=== PATIENT | male | born 1940 | race Caucasian/White ===

== ENCOUNTER 2019-06-26 14:21 | Emergency (ER) | payer MEDICARE, OTHER ==
[~2019-06-26] VITALS: Ht 182.9 cm; Wt 86.7 kg
--- OUTSIDE RECORDS SUMMARY | 2019-06-26 14:24 | XMS REPORT | Summary of Care ---
Author Author [facility] Organization [facility] Address Unknown Phone Unavailable Care Team Providers Care [employer] Name Role Phone System, Pcp Not In PCP Reason for Visit * Reason Comments Back Pain * Consult, Test & Treat (Routine) Referred By Contact Referred To Contact Status Reason Specialty Diagnoses / [place] [address] [place] [id number] [place] [address] [place] [id number] Authorization Physical Diagnoses Not Needed Medicine and Radiculopathy, Rehab lumbar region Kevin L45 trans kristi P rocedures [place] INJECT ANES/STEROID FORAMEN LUMBAR/SACRAL W IMG GUIDE ,1 LEVEL PMR INJECTION FLUORO W/ RM Encounter Details Care Team Description Date Type Department Juvenal Shields Jr., MD [address] [address] Back Pain 02/11/2019 Office Visit [facility] Physical Medicine & Rehabilitation [address] [facility]. 10[address] Floor, [place] [address] Allergies No Known Allergiesdocumented as of this encounter (statuses as of 02/11/2019) Medications End Date Status Medication Sig Dispensed Refills Start Date Active aspirin (ECOTRIN) 325 MG Take by 0 TBEC mouth. Active ATORVASTATIN CALCIUM OR Take by 0 mouth. Active clopidogrel (PLAVIX) 75 Take 75 mg by 0 MG tablet mouth daily. Active IRON OR Take by 0 mouth. Active digoxin (LANOXIN) 125 MCG Take 125 mcg 0 tablet by mouth daily. Active METFORMIN HCL OR Take by 0 mouth. Active Metoprolol-Hydrochlorothi Take by 0 azide 25-12.5 MG TB24 mouth. Active Potassium (POTASSIMIN OR) Take by 0 mouth. Active Pantoprazole Sodium 40 MG Take by 0 PACK mouth. Active [place]-3 Fatty Acids (FISH Take by 0 OIL OR) mouth. Active warfarin (COUMADIN) 7.5 Take 7.5 mg 0 MG tablet by mouth daily. Status Hospital, Clinic, or Ordered Dose Route Frequency Start End Date Other Facility Date Administered Medication Ended triamcinolone acetonide EP ONCE 02/12/20 (KENALOG-40) 40 mg/mL 60 19 9 mg, bupivacaine (PF) (MARCAINE) 0.5 % 2 mLIndications: Bilateral lumbar radiculopathy Ended iohexol (OMNIPAQUE) 300 1 mL EP ONCE 02/12/20 MG/ML injection 1 19 9 mLIndications: Bilateral lumbar radiculopathy documented as of this encounter (statuses as of 02/11/2019) Active Problems No known active problemsdocumented as of this encounter (statuses as of 02/11/2019) Social History Date Tobacco Use Types Packs/Day Years Used Never Smoker Smokeless Tobacco: Never Used Drinks/Week oz/Week Comments Alcohol Use Never Alcohol Habits Answer Date Recorded How often do you have a drink containing alcohol? Never 09/08/2018 How many drinks containing alcohol do you have on Not asked a typical day when you are drinking? How often do you have six or more drinks on one Not asked occasion? Sex Assigned at Date Recorded Not on file Industry Job Start Date Occupation Not on file Not on file Not on file Travel End Travel History Travel Start No recent travel history available. documented as of this encounter Last Filed Vital Signs Reading Time Taken Comments Vital Sign 140/74 02/11/2019 3:22 PM CDT Blood Pressure 80 02/11/2019 3:22 PM CDT Pulse - - Temperature - - Respiratory Rate - - Oxygen Saturation - - Inhaled Oxygen Concentration 95.3 kg (210 lb) 02/11/2019 3:22 PM CDT Weight 182.9 cm (6') 02/11/2019 3:22 PM CDT Height 28.48 02/11/2019 3:22 PM CDT Body Mass Index documented in this encounter Patient Instructions * Patient Instructions* Juvenal Shields Jr., MD - 02/11/2019 4:00 PM CDT Juvenal Shields Jr., MD [facility] PM&R [address] [address] Today you had a spinal injection ACTIVITY: ? Avoid strenuous activity and lifting for 24 hours. Consult with your physicia n for any further instructions. ? If you have received sedation or pain medication, do not drive, drink alcohol, operate machinery, sign legal documents, or make any legal decisions for 24 hours. DAY OF TEST: ? You may resume your normal diet and take your regular medications unless direc james otherwise. ? If you are tender over the site of the injection you may use an ice pack wrapp ed in a towel for 20 minutes, 3-4 times per day. ? Do not apply heat to the area. ? No tub bath or soaking in water (pool, Jacuzzi, etc) for the rest of the day. ? Your usual pain may get slightly worse over the next 24-72 hours. Call for an y unusual pain or discomfort beyond that time frame. ? You may experience prolonged drowsiness or confusion. Therefore, do not drive immediately after the procedure. ? There may be swelling, redness, drainage, or pain at the injection site or IV site. WHEN SHOULD I CALL SOMEONE? ? If you experience severe back pain, progressive numbness or weakness of your l egs, loss of control of your bladder or bowels, or signs of infection in the are a of the injection or IV site, go to the nearest ER or call 911. ? With slight increase in pain,(which is possible) but no other neurological ezequiel nges, you may call our office. However, if you have any doubts or concerns please go to the nearest ER. FOLLOW UP: Call the office for a follow up appointment in approximately 2 weeks if you do not have an appointment already scheduled or unless otherwise stated by physician. YOU MUST BRING YOUR PAIN LOG TO YOUR FOLLOW UP APPOINTMENT. IF NOT, YOUR APPOINTMENT MAY BE CANCELLED. documented in this encounter Progress Notes * Juvenal Shields Jr., MD - 02/11/2019 4:00 PM CDT Date: 02/11/2019 Pre-procedure diagnosis: L45 Acute Lumbar Radiculopathy Bilateral) Post-procedure diagnosis: Same Procedure: 1)L45 Transforaminal Epidural Steroid injection(Right) 2) L45 Transforaminal Epidural Steroid injection(Left) Fluoroscopic Guidance for needle placement Complications: None CONSENT: Today's procedure, its potential benefits as well as its risks and pote ntial side effects were reviewed. Discussed risks of the procedure include bleed ing, infection, nerve irritation or damage, reactions to the medications, headac he, failure of the pain to improve, and exacerbation of the pain were explained to the patient, who verbalized understanding and who wished to proceed. Informed consent was signed. DESCRIPTION OF PROCEDURES: After written informed consent was obtained, the philip ent was taken to the fluoroscopy suite and placed in the prone position. Anatomi faiza landmarks were identified by way of fluoroscopy in multiple views. Strict as eptic technique was utilized. A 22-gauge 3-1/2-inch needle was then incrementally advanced using multiple fluo roscopic views from an oblique approach into the Right L45 lumbar intervertebra l space. Proper needle placement lateral to the 6 oclock position of the L4 p edicle in an AP view was confirmed with the aid of fluoroscopy. Both AP and lat eral views were used to confirm final needle placement. After negative aspirati on, Omniopaque 300 contrast was injected which delineated epidural without vascu lar flow and a normal epidurogram under fluoroscopy in the lateral and AP view. After negative aspiration was reconfirmed, a 1.0 mL of 0.5% marcaine and 30 mg of Kenalog was slowly injected into the epidural space. A 22-gauge 3-1/2-inch needle was then incrementally advanced using multiple fluo roscopic views from an oblique approach into the Left L45 lumbar intervertebral space. Proper needle placement lateral to the 6 oclock position of the L4 pe dicle in an AP view was confirmed with the aid of fluoroscopy. Both AP and late ral views were used to confirm final needle placement. After negative aspiratio n, Omniopaque 300 contrast was injected which delineated epidural without vascul ar flow and a normal epidurogram under fluoroscopy in the lateral and AP view. A fter negative aspiration was reconfirmed, 1.0 mL of 0.5% marcaine and 30 mg of Kenalog was slowly injected into the epidural space All needles were removed intact. Hemostasis was maintained. There were no compli cations. The area was cleaned and a Band-Aid placed as necessary. The patient to lerated the procedure well and all needles were removed intact. After a period o f observation, the patient was noted to be hemodynamically stable and neurovascu larly intact following the procedure as prior to the procedure, and was ultimate ly discharged to home with supervision in good condition. The patient was instru cted to schedule an appointment in the office within 2 weeks. 1 ml of Omnipaque 300 mg/ ml was used and 29 cc of the Omnipaque was wasted. Juvenal Shields Jr., MD documented in this encounter Plan of Treatment Health Maintenance Due Date Last Done Comments MEDICARE AWV 1941 TETANUS SHOT (ADULT) 01/13/1956 BMI FOLLOW UP PLAN 1959 PNEUMOVAX >=65 (PPSV23) 2006 PREVNAR >=65 (PCV13) 2006 FLU VACCINE > 6 MONTHS 11/20/2018 FALL SCREEN 09/09/2019 02/11/2019 documented as of this encounter Results Not on filedocumented in this encounter Visit Diagnoses Diagnosis Bilateral lumbar radiculopathy - Primary documented in this encounter Administered Medications Action Date Dose Rate Site Medication Order MAR Action 02/11/2019 3:58 PM CDT 1 mL iohexol (OMNIPAQUE) 300 MG/ML injection Given by 1 mL 1 mL, Epidural, ONCE, 1 dose, 02/11/19 at 1600 02/11/2019 3:58 PM CDT triamcinolone acetonide (KENALOG-40) 40 Given by mg/mL 60 mg, bupivacaine (PF) (MARCAINE) 0.5 % 2 mL Epidural, ONCE, 1 dose, 02/11/19 at 1600 documented in this encounter Insurance Type Payer Benefit Subscriber ID Effective Phone Address Plan / Dates Group Medicare MEDICARE MEDICARE xxxxxxxxxx 2014-[id number] [place] [address] PPO [facility] CHOICE/CHO xxxxxxxxx 2013- [address] [place] [address] [id number] PLUS/[facility] PPO - [facility] [id number] documented as of this encounter
--- OUTSIDE RECORDS SUMMARY | 2019-06-26 14:25 | XMS REPORT ---
Author Author [facility] Address Unknown Phone Unavailable Care Team Providers Care Senior Java Web Application Developer Name Role Phone Zen ALVAREZ Unavailable Unavailable Nanci LAWSON Unavailable Unavailable Problems This patient has no known problems. Allergies, Adverse Reactions, Alerts This patient has no known allergies or adverse reactions. Medications This patient has no known medications. Results Test Description Test Time Test Comments Text Results Atomic Results Result Comments HEMOGLOBIN A1C 2019-05-19 15:50:00 HEMOGLOBIN A1C (THEO) (test arxz=264) 5.7 % 4.3-6.1 Job Putter Up And Ticket Preparer ID - [id number] 13:06:00* Test Item Value Reference Range Comments PROSTATE SPECIFIC ANTIGEN (BEAKER) (test svfj=695) 2.8 ng/mL 0.0-4.0 Job Putter Up And Ticket Preparer ID - VERENA [id number] 09:23:00* Test Item Value Reference Range Comments THYROID STIMULATING HORMONE (KTAKER) (test emwb=375) 3.12 uIU/mL 0.35-4.94 Job Putter Up And Ticket Preparer ID - VERENA MB-TYPE NATRIURETIC FACTOR (BNP)2019-05-19 09:08:00* Test Item Value Reference Range Comments B-TYPE NATRIURETIC PEPTIDE (KTAKER) (test nrou=089) 797 pg/mL 0-100 Job Putter Up And Ticket Preparer ID - VERENA MLIPID [id number] 09:04:00* Test Item Value Reference Range Comments TRIGLYCERIDES (BEAKER) (test qpnd=782) 135 mg/dL CHOLESTEROL (BEAKER) (test xohp=817) 146 mg/dL HDL CHOLESTEROL (BEAKER) (test dngn=866) 35 mg/dL LDL CHOLESTEROL CALCULATED (BEAKER) (test rzgb=863) 84 mg/dL Triglyceride Reference Range: Low Risk <150 Borderline 150-199 High Risk 200-499 Very High Risk >=500Cholesterol Reference Range: Low Risk <200 Borderline 200-239 High Risk >240HDL Cholesterol Reference Range: Low Risk >=60 High Risk <40LDL Cholesterol Reference Range: Optimal <100 Near Optimal 100-129 Borderline 130-159 High 160-189 Very High >=190 Job Putter Up And Ticket Preparer ID Jay ALBARADO MBASIC METABOLIC [id number] 09:04:00* Test Item Value Reference Range Comments SODIUM (BEAKER) (test hqdv=250) 141 meq/L 136-145 POTASSIUM (BEAKER) (test znrh=091) 3.9 meq/L 3.5-5.1 CHLORIDE (BEAKER) (test adwa=426) 107 meq/L 98-107 CO2 (BEAKER) (test uwxw=062) 23 meq/L 22-29 BLOOD UREA NITROGEN (BEAKER) (test cege=165) 18 mg/dL 7-21 CREATININE (BEAKER) (test xqtd=810) 1.15 mg/dL 0.57-1.25 GLUCOSE RANDOM (BEAKER) (test tekg=416) 112 mg/dL 70-105 CALCIUM (BEAKER) (test gauc=545) 10.0 mg/dL 8.4-10.2 EGFR (BEAKER) (test iujy=3998) 62 mL/min/1.73 sq m ESTIMATED GFR IS NOT ACCURATE CREATININE CLEARANCE IN PREDICTING GLOMERULAR FILTRATION RATE. ESTIMATED GFR IS NOT APPLICABLE FOR DIALYSIS PATIENTS. Job Putter Up And Ticket Preparer ID Jay ALBARADO MHEPATIC FUNCTION [id number] 09:04:00* Test Item Value Reference Range Comments TOTAL PROTEIN (BEAKER) (test oagw=244) 7.2 gm/dL 6.0-8.3 ALBUMIN (BEAKER) (test nlzm=4332) 4.3 g/dL 3.5-5.0 BILIRUBIN TOTAL (BEAKER) (test fhkm=913) 1.1 mg/dL 0.2-1.2 BILIRUBIN DIRECT (BEAKER) (test cnol=559) 0.6 mg/dL 0.1-0.5 ALKALINE PHOSPHATASE (BEAKER) (test hwoi=950) 77 U/L 40-150 AST (SGOT) (BEAKER) (test rxfh=565) 13 U/L 5-34 ALT (SGPT) (BEAKER) (test aynt=597) 12 U/L 6-55 Job Putter Up And Ticket Preparer GEE ALBARADO [facility] W/PLT COUNT & AUTO [id number] 08:41:00* Test Item Value Reference Range Comments WHITE BLOOD CELL COUNT (BEAKER) (test nhyc=555) 8.7 K/ L 3.5-10.5 RED BLOOD CELL COUNT (BEAKER) (test djkc=445) 4.07 M/ L 4.63-6.08 HEMOGLOBIN (BEAKER) (test ylvf=933) 12.1 GM/DL 13.7-17.5 HEMATOCRIT (BEAKER) (test qyej=766) 38.2 % 40.1-51.0 MEAN CORPUSCULAR VOLUME (BEAKER) (test dooy=975) 93.9 fL 79.0-92.2 MEAN CORPUSCULAR HEMOGLOBIN (BEAKER) (test qgdn=543) 29.7 pg 25.7-32.2 MEAN CORPUSCULAR HEMOGLOBIN CONC (BEAKER) (test unmy=085) 31.7 GM/DL 32.3-36.5 RED CELL DISTRIBUTION WIDTH (BEAKER) (test ojhh=954) 15.6 % 11.6-14.4 PLATELET COUNT (BEAKER) (test twbt=285) 168 K/CU MM 150-450 MEAN PLATELET VOLUME (BEAKER) (test kopj=064) 10.9 fL 9.4-12.4 NUCLEATED RED BLOOD CELLS (BEAKER) (test zzia=904) 0 /100 WBC 0-0 NEUTROPHILS RELATIVE PERCENT (BEAKER) (test jpco=353) 66 % LYMPHOCYTES RELATIVE PERCENT (BEAKER) (test eubc=351) 21 % MONOCYTES RELATIVE PERCENT (BEAKER) (test ogfq=467) 8 % EOSINOPHILS RELATIVE PERCENT (BEAKER) (test jxkg=122) 4 % BASOPHILS RELATIVE PERCENT (BEAKER) (test kyhp=901) 1 % NEUTROPHILS ABSOLUTE COUNT (BEAKER) (test hyoy=790) 5.77 K/ L 1.78-5.38 LYMPHOCYTES ABSOLUTE COUNT (BEAKER) (test movh=397) 1.80 K/ L 1.32-3.57 MONOCYTES ABSOLUTE COUNT (BEAKER) (test fpxh=635) 0.70 K/ L 0.30-0.82 EOSINOPHILS ABSOLUTE COUNT (BEAKER) (test zmpk=326) 0.33 K/ L 0.04-0.54 BASOPHILS ABSOLUTE COUNT (BEAKER) (test jtyx=873) 0.05 K/ L 0.01-0.08 IMMATURE GRANULOCYTES-RELATIVE PERCENT (BEAKER) (test uneq=5447) 1 % 0-1 POCT-GLUCOSE [id number] 14:59:00* Test Item Value Reference Range Comments POC-GLUCOSE METER (BEAKER) (test wsjk=6895) 139 mg/dL 70-110 : TESTED AT [address], [address]: Job Putter Up And Ticket Preparer/Guide Dog Mobility Instructor [id number] for JESUS JONES BASIC METABOLIC [id number] 09:56:00* Test Item Value Reference Range Comments SODIUM (BEAKER) (test xutx=938) 140 meq/L 136-145 POTASSIUM (BEAKER) (test rskv=657) 4.2 meq/L 3.5-5.1 CHLORIDE (BEAKER) (test elix=630) 107 meq/L 98-107 CO2 (BEAKER) (test pctx=659) 23 meq/L 22-29 BLOOD UREA NITROGEN (BEAKER) (test xkxb=952) 29 mg/dL 7-21 CREATININE (BEAKER) (test dzlb=230) 1.47 mg/dL 0.57-1.25 GLUCOSE RANDOM (BEAKER) (test faqj=071) 114 mg/dL 70-105 CALCIUM (BEAKER) (test bnba=152) 10.1 mg/dL 8.4-10.2 EGFR (BEAKER) (test jycu=9395) 46 mL/min/1.73 sq m ESTIMATED GFR IS NOT ACCURATE CREATININE CLEARANCE IN PREDICTING GLOMERULAR FILTRATION RATE. ESTIMATED GFR IS NOT APPLICABLE FOR DIALYSIS PATIENTS. [id number] 09:56:00* Test Item Value Reference Range Comments MAGNESIUM (BEAKER) (test fwfo=538) 1.6 mg/dL 1.6-2.6 POCT-GLUCOSE [id number] 21:23:00* Test Item Value Reference Range Comments POC-GLUCOSE METER (BEAKER) (test rjul=5064) 135 mg/dL 70-110 : Notified RN/MD: TESTED AT [address], [address]: Job Putter Up And Ticket Preparer/Guide Dog Mobility Instructor [id number] for LOUIS CANTORR POCT-GLUCOSE [id number] 18:33:00* Test Item Value Reference Range Comments POC-GLUCOSE METER (BEAKER) (test nqrt=8786) 161 mg/dL 70-110 : TESTED AT [address], [address]: Job Putter Up And Ticket Preparer/Guide Dog Mobility Instructor IZ=[id number] for JONES, JESUS POCT-GLUCOSE [id number] 14:18:00* Test Item Value Reference Range Comments POC-GLUCOSE METER (BEAKER) (test rusj=9498) 131 mg/dL 70-110 : TESTED AT [place] [id number] [facility], [address]: Job Putter Up And Ticket Preparer/Guide Dog Mobility Instructor [id number] for JONES, JESUS BASIC METABOLIC [id number] 09:22:00* Test Item Value Reference Range Comments SODIUM (BEAKER) (test olsb=388) 138 meq/L 136-145 POTASSIUM (BEAKER) (test fdgy=110) 4.6 meq/L 3.5-5.1 CHLORIDE (BEAKER) (test shiw=643) 107 meq/L 98-107 CO2 (BEAKER) (test pjmq=902) 22 meq/L 22-29 BLOOD UREA NITROGEN (BEAKER) (test cvnk=840) 28 mg/dL 7-21 CREATININE (BEAKER) (test szzv=528) 1.42 mg/dL 0.57-1.25 GLUCOSE RANDOM (BEAKER) (test uioo=552) 113 mg/dL 70-105 CALCIUM (BEAKER) (test gsgz=882) 10.2 mg/dL 8.4-10.2 EGFR (BEAKER) (test hebu=1637) 48 mL/min/1.73 sq m ESTIMATED GFR IS NOT ACCURATE CREATININE CLEARANCE IN PREDICTING GLOMERULAR FILTRATION RATE. ESTIMATED GFR IS NOT APPLICABLE FOR DIALYSIS PATIENTS. POCT-GLUCOSE [id number] 09:13:00* Test Item Value Reference Range Comments POC-GLUCOSE METER (BEAKER) (test zuvg=6759) 112 mg/dL 70-110 : TESTED AT [place] [id number] [facility], [address]: Job Putter Up And Ticket Preparer/Guide Dog Mobility Instructor [id number] for JONES, JESUS POCT-GLUCOSE [id number] 06:02:00* Test Item Value Reference Range Comments POC-GLUCOSE METER (BEAKER) (test zogr=9872) 116 mg/dL 70-110 : TESTED AT [address], [address]: Job Putter Up And Ticket Preparer/Guide Dog Mobility Instructor [id number] for MERY WESLY POCT-GLUCOSE [id number] 23:07:00* Test Item Value Reference Range Comments POC-GLUCOSE METER (BEAKER) (test nbwy=9264) 129 mg/dL 70-110 : TESTED AT [place] [address] [facility], [address]: Job Putter Up And Ticket Preparer/Guide Dog Mobility Instructor [id number] for WESLY ORDONEZ POCT-GLUCOSE [id number] 17:19:00* Test Item Value Reference Range Comments POC-GLUCOSE METER (BEAKER) (test qram=3688) 125 mg/dL 70-110 : TESTED AT [address], [address]: Job Putter Up And Ticket Preparer/Guide Dog Mobility Instructor [id number] for Anastacio Menendez POCT-GLUCOSE [id number] 11:54:00* Test Item Value Reference Range Comments POC-GLUCOSE METER (BEAKER) (test sjxd=8537) 146 mg/dL 70-110 : TESTED AT [address], [address]: Job Putter Up And Ticket Preparer/Guide Dog Mobility Instructor [id number] for Anastacio Menendez POCT-GLUCOSE [id number] 08:11:00* Test Item Value Reference Range Comments POC-GLUCOSE METER (BEAKER) (test jlpv=0779) 111 mg/dL 70-110 : TESTED AT [address], [address]: Job Putter Up And Ticket Preparer/Guide Dog Mobility Instructor [id number] for Anastacio Menendez [id number] 07:02:00* Test Item Value Reference Range Comments PHOSPHORUS (BEAKER) (test foja=756) 3.9 mg/dL 2.3-4.7 Check Serum Phosphorus level 4 hours after IV phosphorus replacement or 8 hours after PO replacement completed.[id number] 07:02:00* Test Item Value Reference Range Comments MAGNESIUM (BEAKER) (test higv=563) 2.1 mg/dL 1.6-2.6 Check Serum Phosphorus level 4 hours after IV phosphorus replacement or 8 hours after PO replacement completed.BASIC METABOLIC [id number] 07:02:00* Test Item Value Reference Range Comments SODIUM (BEAKER) (test nrir=595) 138 meq/L 136-145 POTASSIUM (BEAKER) (test vcqt=404) 4.3 meq/L 3.5-5.1 CHLORIDE (BEAKER) (test yldm=933) 106 meq/L 98-107 CO2 (BEAKER) (test bail=379) 22 meq/L 22-29 BLOOD UREA NITROGEN (BEAKER) (test zsur=790) 22 mg/dL 7-21 CREATININE (BEAKER) (test ofwx=964) 1.11 mg/dL 0.57-1.25 GLUCOSE RANDOM (BEAKER) (test jdrs=932) 124 mg/dL 70-105 CALCIUM (BEAKER) (test fkle=190) 9.9 mg/dL 8.4-10.2 EGFR (BEAKER) (test rxrw=2710) 64 mL/min/1.73 sq m ESTIMATED GFR IS NOT ACCURATE CREATININE CLEARANCE IN PREDICTING GLOMERULAR FILTRATION RATE. ESTIMATED GFR IS NOT APPLICABLE FOR DIALYSIS PATIENTS. Check Serum Phosphorus level 4 hours after IV phosphorus replacement or 8 hours after PO replacement completed.POCT-GLUCOSE [id number] 21:51:00* Test Item Value Reference Range Comments POC-GLUCOSE METER (BEAKER) (test nihe=2582) 155 mg/dL 70-110 : TESTED AT [address], [address]: Job Putter Up And Ticket Preparer/Guide Dog Mobility Instructor [id number] for TRACY LEMUS POCT-GLUCOSE [id number] 17:21:00* Test Item Value Reference Range Comments POC-GLUCOSE METER (BEAKER) (test xazq=3953) 121 mg/dL 70-110 : TESTED AT [address], [address]: Job Putter Up And Ticket Preparer/Guide Dog Mobility Instructor [id number] for Anastacio Menendez POCT-GLUCOSE [id number] 12:17:00* Test Item Value Reference Range Comments POC-GLUCOSE METER (BEAKER) (test pgvs=8659) 129 mg/dL 70-110 : TESTED AT [address], [address]: Job Putter Up And Ticket Preparer/Guide Dog Mobility Instructor [id number] for Anastacio Menendez [id number] 11:30:00* Test Item Value Reference Range Comments MAGNESIUM (BEAKER) (test mtgm=518) 2.0 mg/dL 1.6-2.6 POCT-GLUCOSE [id number] 10:46:00* Test Item Value Reference Range Comments POC-GLUCOSE METER (BEAKER) (test jivl=8300) 127 mg/dL 70-110 : TESTED AT [address], [address]: Job Putter Up And Ticket Preparer/Guide Dog Mobility Instructor [id number] Anastacio Marina [id number] 05:12:00* Test Item Value Reference Range Comments MAGNESIUM (BEAKER) (test rkmp=189) 1.6 mg/dL 1.6-2.6 Specimen slightly hemolyzed BASIC METABOLIC [id number] 05:12:00* Test Item Value Reference Range Comments SODIUM (BEAKER) (test wshg=373) 138 meq/L 136-145 POTASSIUM (BEAKER) (test xsbo=989) 4.2 meq/L 3.5-5.1 Specimen slightly hemolyzed CHLORIDE (BEAKER) (test alfl=314) 107 meq/L 98-107 CO2 (BEAKER) (test eyxd=683) 19 meq/L 22-29 BLOOD UREA NITROGEN (BEAKER) (test avbu=327) 17 mg/dL 7-21 CREATININE (BEAKER) (test zgqs=090) 1.10 mg/dL 0.57-1.25 Specimen slightly hemolyzed GLUCOSE RANDOM (BEAKER) (test xxsk=937) 128 mg/dL 70-105 CALCIUM (BEAKER) (test drri=545) 9.8 mg/dL 8.4-10.2 EGFR (BEAKER) (test isom=8574) 65 mL/min/1.73 sq m ESTIMATED GFR IS NOT ACCURATE CREATININE CLEARANCE IN PREDICTING GLOMERULAR FILTRATION RATE. ESTIMATED GFR IS NOT APPLICABLE FOR DIALYSIS PATIENTS. PT/[id number] 04:49:00* Test Item Value Reference Range Comments PROTIME (BEAKER) (test tksh=908) 14.6 seconds 11.9-14.2 INR (BEAKER) (test fwii=790) 1.2 <=5.9 PARTIAL THROMBOPLASTIN TIME (BEAKER) (test adlf=437) 29.2 seconds 22.5-36.0 Effective 09/17/2018: PT Reference Range ChangeNew: 11.9-14.2 Previous: 11.7-14. 7RECOMMENDED COUMADIN/WARFARIN INR THERAPY RANGESSTANDARD DOSE: 2.0-3.0 Include s: PROPHYLAXIS for venous thrombosis, systemic embolization; TREATMENT for venou s thrombosis and/or pulmonary embolus.HIGH RISK: Target INR is 2.5-3.5 for patie nts wiht mechanical heart valves.PROTHROMBIN [id number] 04:48:00* Test Item Value Reference Range Comments PROTIME (BEAKER) (test wvmw=605) 14.6 seconds 11.9-14.2 INR (BEAKER) (test jwct=555) 1.2 <=5.9 Effective 09/17/2018: PT Reference Range ChangeNew: 11.9-14.2 Previous: 11.7-14. 7RECOMMENDED COUMADIN/WARFARIN INR THERAPY RANGESSTANDARD DOSE: 2.0-3.0 Include s: PROPHYLAXIS for venous thrombosis, systemic embolization; TREATMENT for venou s thrombosis and/or pulmonary embolus.HIGH RISK: Target INR is 2.5-3.5 for patie nts wiht mechanical heart valves.POCT-GLUCOSE [id number] 21:15:00* Test Item Value Reference Range Comments POC-GLUCOSE METER (BEAKER) (test pycs=6267) 133 mg/dL 70-110 : TESTED AT [place] [address] [facility], [address]: Job Putter Up And Ticket Preparer/Guide Dog Mobility Instructor [id number] for ALLAN TRACY POCT-GLUCOSE [id number] 16:59:00* Test Item Value Reference Range Comments POC-GLUCOSE METER (BEAKER) (test aerq=3432) 124 mg/dL 70-110 : TESTED AT [place] [address] [facility], [address]: Job Putter Up And Ticket Preparer/Guide Dog Mobility Instructor [id number] for ALEKSANDER JONESA POCT-GLUCOSE [id number] 12:04:00* Test Item Value Reference Range Comments POC-GLUCOSE METER (BEAKER) (test hanc=2404) 106 mg/dL 70-110 : TESTED AT [place] [address] [facility], [address]: Job Putter Up And Ticket Preparer/Guide Dog Mobility Instructor [id number] for JONES, JESUS B-TYPE NATRIURETIC FACTOR (BNP)2019-04-16 05:06:00* Test Item Value Reference Range Comments B-TYPE NATRIURETIC PEPTIDE (BEAKER) (test dsfk=263) 682 pg/mL 0-100 PT/[id number] 05:05:00* Test Item Value Reference Range Comments PROTIME (BEAKER) (test slyn=236) 15.2 seconds 11.9-14.2 INR (BEAKER) (test noto=576) 1.3 <=5.9 PARTIAL THROMBOPLASTIN TIME (BEAKER) (test yxkw=597) 28.9 seconds 22.5-36.0 Effective 09/17/2018: PT Reference Range ChangeNew: 11.9-14.2 Previous: 11.7-14. 7RECOMMENDED COUMADIN/WARFARIN INR THERAPY RANGESSTANDARD DOSE: 2.0-3.0 Include s: PROPHYLAXIS for venous thrombosis, systemic embolization; TREATMENT for venou s thrombosis and/or pulmonary embolus.HIGH RISK: Target INR is 2.5-3.5 for [facility] wiht mechanical heart valves.PROTHROMBIN TIME/[id number] 05:04:00* Test Item Value Reference Range Comments PROTIME (BEAKER) (test jfjh=045) 15.2 seconds 11.9-14.2 INR (BEAKER) (test vrcb=350) 1.3 <=5.9 Effective 09/17/2018: PT Reference Range ChangeNew: 11.9-14.2 Previous: 11.7-14. 7RECOMMENDED COUMADIN/WARFARIN INR THERAPY RANGESSTANDARD DOSE: 2.0-3.0 Include s: PROPHYLAXIS for venous thrombosis, systemic embolization; TREATMENT for venou s thrombosis and/or pulmonary embolus.HIGH RISK: Target INR is 2.5-3.5 for [facility] mechanical heart valves.[id number] 04:56:00* Test Item Value Reference Range Comments MAGNESIUM (BEAKER) (test qhyw=840) 1.7 mg/dL 1.6-2.6 BASIC METABOLIC [id number] 04:56:00* Test Item Value Reference Range Comments SODIUM (BEAKER) (test yacu=706) 139 meq/L 136-145 POTASSIUM (BEAKER) (test mymf=434) 3.9 meq/L 3.5-5.1 CHLORIDE (BEAKER) (test hgvu=349) 106 meq/L 98-107 CO2 (BEAKER) (test dhzy=822) 23 meq/L 22-29 BLOOD UREA NITROGEN (BEAKER) (test vdhs=934) 13 mg/dL 7-21 CREATININE (BEAKER) (test pwjp=909) 1.13 mg/dL 0.57-1.25 GLUCOSE RANDOM (BEAKER) (test ulvf=254) 114 mg/dL 70-105 CALCIUM (BEAKER) (test nowj=720) 9.8 mg/dL 8.4-10.2 EGFR (BEAKER) (test yfly=1540) 63 mL/min/1.73 sq m ESTIMATED GFR IS NOT ACCURATE CREATININE CLEARANCE IN PREDICTING GLOMERULAR FILTRATION RATE. ESTIMATED GFR IS NOT APPLICABLE FOR DIALYSIS PATIENTS. CBC W/PLT COUNT & AUTO [id number] 04:41:00* Test Item Value Reference Range Comments WHITE BLOOD CELL COUNT (BEAKER) (test lyyn=866) 9.5 K/ L 3.5-10.5 RED BLOOD CELL COUNT (BEAKER) (test tpcr=341) 4.88 M/ L 4.63-6.08 HEMOGLOBIN (BEAKER) (test ntbl=717) 14.5 GM/DL 13.7-17.5 HEMATOCRIT (BEAKER) (test gaxx=104) 45.4 % 40.1-51.0 MEAN CORPUSCULAR VOLUME (BEAKER) (test eijq=986) 93.0 fL 79.0-92.2 MEAN CORPUSCULAR HEMOGLOBIN (BEAKER) (test keeq=045) 29.7 pg 25.7-32.2 MEAN CORPUSCULAR HEMOGLOBIN CONC (BEAKER) (test bmej=597) 31.9 GM/DL 32.3-36.5 RED CELL DISTRIBUTION WIDTH (BEAKER) (test olhe=286) 15.6 % 11.6-14.4 PLATELET COUNT (BEAKER) (test imrn=011) 223 K/CU MM 150-450 MEAN PLATELET VOLUME (BEAKER) (test hrfv=243) 10.4 fL 9.4-12.4 NUCLEATED RED BLOOD CELLS (BEAKER) (test gmlw=272) 0 /100 WBC 0-0 NEUTROPHILS RELATIVE PERCENT (BEAKER) (test uoos=507) 68 % LYMPHOCYTES RELATIVE PERCENT (BEAKER) (test prvg=208) 17 % MONOCYTES RELATIVE PERCENT (BEAKER) (test xyey=938) 10 % EOSINOPHILS RELATIVE PERCENT (BEAKER) (test vtah=500) 4 % BASOPHILS RELATIVE PERCENT (BEAKER) (test agnt=263) 0 % NEUTROPHILS ABSOLUTE COUNT (BEAKER) (test cpcd=321) 6.48 K/ L 1.78-5.38 LYMPHOCYTES ABSOLUTE COUNT (BEAKER) (test eezu=985) 1.60 K/ L 1.32-3.57 MONOCYTES ABSOLUTE COUNT (BEAKER) (test mxua=833) 0.97 K/ L 0.30-0.82 EOSINOPHILS ABSOLUTE COUNT (BEAKER) (test lpzb=451) 0.37 K/ L 0.04-0.54 BASOPHILS ABSOLUTE COUNT (BEAKER) (test adrd=437) 0.03 K/ L 0.01-0.08 IMMATURE GRANULOCYTES-RELATIVE PERCENT (BEAKER) (test pmop=7058) 1 % 0-1 POCT-GLUCOSE [id number] 21:34:00* Test Item Value Reference Range Comments POC-GLUCOSE METER (BEAKER) (test ocgf=4572) 104 mg/dL 70-110 : Notified RN/MD: TESTED AT [address], [address]: Job Putter Up And Ticket Preparer/Guide Dog Mobility Instructor [id number] for KARLO PARKER POCT-GLUCOSE [id number] 17:25:00* Test Item Value Reference Range Comments POC-GLUCOSE METER (BEAKER) (test fhcn=2933) 127 mg/dL 70-110 : TESTED AT [address], [address]: Job Putter Up And Ticket Preparer/Guide Dog Mobility Instructor [id number] for JONES, JESUS POCT-GLUCOSE [id number] 12:50:00* Test Item Value Reference Range Comments POC-GLUCOSE METER (BEAKER) (test alav=9605) 95 mg/dL 70-110 : TESTED AT [address], [address]: Job Putter Up And Ticket Preparer/Guide Dog Mobility Instructor [id number] for JONES, JESUS [id number] 12:00:00* Test Item Value Reference Range Comments POTASSIUM (BEAKER) (test nwvp=214) 4.5 meq/L 3.5-5.1 Check Serum Potassium level 2 hours after oral potassium replacement completed o r 30 min after intravenous potassium replacement.[id number] 12:00:00* Test Item Value Reference Range Comments MAGNESIUM (BEAKER) (test zcbe=500) 2.0 mg/dL 1.6-2.6 Check Serum Potassium level 2 hours after oral potassium replacement completed o r 30 min after intravenous potassium replacement.POCT-GLUCOSE [id number] 07:51:00* Test Item Value Reference Range Comments POC-GLUCOSE METER (BEAKER) (test ltmu=2761) 110 mg/dL 70-110 : TESTED AT [facility] [address] [place] [place], [address]: Job Putter Up And Ticket Preparer/Guide Dog Mobility Instructor [id number] for JESUS JONES B-TYPE NATRIURETIC FACTOR (BNP)2019-04-15 05:08:00* Test Item Value Reference Range Comments B-TYPE NATRIURETIC PEPTIDE (BEAKER) (test frfo=946) 700 pg/mL 0-100 [id number] 05:04:00* Test Item Value Reference Range Comments MAGNESIUM (BEAKER) (test lkga=511) 1.4 mg/dL 1.6-2.6 BASIC METABOLIC [id number] 05:04:00* Test Item Value Reference Range Comments SODIUM (BEAKER) (test unjt=195) 140 meq/L 136-145 POTASSIUM (BEAKER) (test tpxs=419) 3.8 meq/L 3.5-5.1 CHLORIDE (BEAKER) (test mlhi=046) 106 meq/L 98-107 CO2 (BEAKER) (test gzaq=135) 23 meq/L 22-29 BLOOD UREA NITROGEN (BEAKER) (test vwpn=217) 15 mg/dL 7-21 CREATININE (BEAKER) (test dpts=650) 0.94 mg/dL 0.57-1.25 GLUCOSE RANDOM (BEAKER) (test expp=511) 104 mg/dL 70-105 CALCIUM (BEAKER) (test cjtj=658) 9.5 mg/dL 8.4-10.2 EGFR (BEAKER) (test utuc=1726) 78 mL/min/1.73 sq m ESTIMATED GFR IS NOT ACCURATE CREATININE CLEARANCE IN PREDICTING GLOMERULAR FILTRATION RATE. ESTIMATED GFR IS NOT APPLICABLE FOR DIALYSIS PATIENTS. Specimen slightly ictericPROTHROMBIN TIME/[id number] 04:42:00* Test Item Value Reference Range Comments PROTIME (BEAKER) (test kflt=444) 21.5 seconds 11.9-14.2 INR (BEAKER) (test imft=066) 2.0 <=5.9 Effective 09/17/2018: PT Reference Range ChangeNew: 11.9-14.2 Previous: 11.7-14. 7RECOMMENDED COUMADIN/WARFARIN INR THERAPY RANGESSTANDARD DOSE: 2.0-3.0 Include s: PROPHYLAXIS for venous thrombosis, systemic embolization; TREATMENT for venou s thrombosis and/or pulmonary embolus.HIGH RISK: Target INR is 2.5-3.5 for [facility] [place] mechanical heart valves.PT/[id number] 04:42:00* Test Item Value Reference Range Comments PROTIME (BEAKER) (test yrif=723) 21.5 seconds 11.9-14.2 INR (BEAKER) (test wphw=053) 2.0 <=5.9 PARTIAL THROMBOPLASTIN TIME (BEAKER) (test lpvr=480) 34.3 seconds 22.5-36.0 Effective 09/17/2018: PT Reference Range ChangeNew: 11.9-14.2 Previous: 11.7-14. 7RECOMMENDED COUMADIN/WARFARIN INR THERAPY RANGESSTANDARD DOSE: 2.0-3.0 Include s: PROPHYLAXIS for venous thrombosis, systemic embolization; TREATMENT for venou s thrombosis and/or pulmonary embolus.HIGH RISK: Target INR is 2.5-3.5 for [facility] mechanical heart valves.POCT-GLUCOSE [id number] 21:41:00* Test Item Value Reference Range Comments POC-GLUCOSE METER (BEAKER) (test ekcw=1712) 90 mg/dL 70-110 : TESTED AT [address], [address]: Job Putter Up And Ticket Preparer/Guide Dog Mobility Instructor [id number] for ALLAN TRACY POCT-GLUCOSE [id number] 15:56:00* Test Item Value Reference Range Comments POC-GLUCOSE METER (BEAKER) (test iemg=0358) 105 mg/dL 70-110 : TESTED AT [address], [address]: Job Putter Up And Ticket Preparer/Guide Dog Mobility Instructor [id number] for JONES, JESUS POCT-GLUCOSE [id number] 07:34:00* Test Item Value Reference Range Comments POC-GLUCOSE METER (BEAKER) (test vhwv=7652) 99 mg/dL 70-110 : TESTED AT [address], [address]: Job Putter Up And Ticket Preparer/Guide Dog Mobility Instructor [id number] for JONES, JESUS [id number] 04:15:00* Test Item Value Reference Range Comments MAGNESIUM (BEAKER) (test oqvb=765) 1.0 mg/dL 1.6-2.6 Specimen moderately hemolyzed TROPONIN [id number] 04:05:00* Test Item Value Reference Range Comments TROPONIN I (BEAKER) (test iqxa=798) 0.11 ng/mL 0.00-0.03 Troponin I (TnI) levels must be interpreted in the context of the presenting sym ptoms and the clinical findings. Elevated TnI levels indicate myocardial damage, but are not specific for ischemic heart disease. Elevated TnI levels are seen in patients with other cardiac conditions (including myocarditis and congestive h eart failure), and slight TnI elevations occur in patients with other conditions , including sepsis, renal failure, acidosis, acute neurological disease, and per sistent tachyarrhythmia.B-TYPE NATRIURETIC FACTOR (BNP)2019-04-14 04:01:00* Test Item Value Reference Range Comments B-TYPE NATRIURETIC PEPTIDE (BEAKER) (test kvxi=533) 835 pg/mL 0-100 BASIC METABOLIC [id number] 03:56:00* Test Item Value Reference Range Comments SODIUM (BEAKER) (test iozj=121) 140 meq/L 136-145 POTASSIUM (BEAKER) (test ijht=725) 4.3 meq/L 3.5-5.1 Specimen moderately hemolyzed CHLORIDE (BEAKER) (test cspy=269) 108 meq/L 98-107 CO2 (BEAKER) (test ipdk=334) 21 meq/L 22-29 BLOOD UREA NITROGEN (BEAKER) (test nads=458) 20 mg/dL 7-21 CREATININE (BEAKER) (test mdsq=226) 1.07 mg/dL 0.57-1.25 Specimen moderately hemolyzed GLUCOSE RANDOM (BEAKER) (test uluc=878) 102 mg/dL 70-105 CALCIUM (BEAKER) (test hojk=694) 9.7 mg/dL 8.4-10.2 EGFR (BEAKER) (test nvgc=2130) 67 mL/min/1.73 sq m ESTIMATED GFR IS NOT ACCURATE CREATININE CLEARANCE IN PREDICTING GLOMERULAR FILTRATION RATE. ESTIMATED GFR IS NOT APPLICABLE FOR DIALYSIS PATIENTS. Specimen slightly ictericPT/[id number] 03:46:00* Test Item Value Reference Range Comments PROTIME (BEAKER) (test rvkn=332) 37.7 seconds 11.9-14.2 INR (BEAKER) (test ihgc=330) 4.1 <=5.9 PARTIAL THROMBOPLASTIN TIME (BEAKER) (test ozpo=182) 44.6 seconds 22.5-36.0 Effective 09/17/2018: PT Reference Range ChangeNew: 11.9-14.2 Previous: 11.7-14. 7RECOMMENDED COUMADIN/WARFARIN INR THERAPY RANGESSTANDARD DOSE: 2.0-3.0 Include s: PROPHYLAXIS for venous thrombosis, systemic embolization; TREATMENT for venou s thrombosis and/or pulmonary embolus.HIGH RISK: Target INR is 2.5-3.5 for patie nts wiht mechanical heart valves.CBC W/PLT COUNT & AUTO [id number] 03:37:00* Test Item Value Reference Range Comments WHITE BLOOD CELL COUNT (BEAKER) (test nkrk=274) 9.1 K/ L 3.5-10.5 RED BLOOD CELL COUNT (BEAKER) (test czte=366) 4.15 M/ L 4.63-6.08 HEMOGLOBIN (BEAKER) (test fent=857) 12.2 GM/DL 13.7-17.5 HEMATOCRIT (BEAKER) (test bkzr=370) 38.8 % 40.1-51.0 MEAN CORPUSCULAR VOLUME (BEAKER) (test ulbg=440) 93.5 fL 79.0-92.2 MEAN CORPUSCULAR HEMOGLOBIN (BEAKER) (test iztr=729) 29.4 pg 25.7-32.2 MEAN CORPUSCULAR HEMOGLOBIN CONC (BEAKER) (test rjqh=085) 31.4 GM/DL 32.3-36.5 RED CELL DISTRIBUTION WIDTH (BEAKER) (test sgoh=338) 15.8 % 11.6-14.4 PLATELET COUNT (BEAKER) (test ddid=872) 255 K/CU MM 150-450 MEAN PLATELET VOLUME (BEAKER) (test xxna=135) 10.6 fL 9.4-12.4 NUCLEATED RED BLOOD CELLS (BEAKER) (test jzll=323) 0 /100 WBC 0-0 NEUTROPHILS RELATIVE PERCENT (BEAKER) (test frsn=332) 69 % LYMPHOCYTES RELATIVE PERCENT (BEAKER) (test kqpe=304) 18 % MONOCYTES RELATIVE PERCENT (BEAKER) (test jlhf=836) 9 % EOSINOPHILS RELATIVE PERCENT (BEAKER) (test udnp=579) 3 % BASOPHILS RELATIVE PERCENT (BEAKER) (test iihp=727) 1 % NEUTROPHILS ABSOLUTE COUNT (BEAKER) (test lzui=073) 6.26 K/ L 1.78-5.38 LYMPHOCYTES ABSOLUTE COUNT (BEAKER) (test aziw=789) 1.60 K/ L 1.32-3.57 MONOCYTES ABSOLUTE COUNT (BEAKER) (test ybrx=373) 0.81 K/ L 0.30-0.82 EOSINOPHILS ABSOLUTE COUNT (BEAKER) (test nutz=839) 0.31 K/ L 0.04-0.54 BASOPHILS ABSOLUTE COUNT (BEAKER) (test ppcn=057) 0.05 K/ L 0.01-0.08 IMMATURE GRANULOCYTES-RELATIVE PERCENT (BEAKER) (test tcyv=0144) 1 % 0-1 POCT-GLUCOSE [id number] 00:02:00* Test Item Value Reference Range Comments POC-GLUCOSE METER (BEAKER) (test efun=2305) 86 mg/dL 70-110 : TESTED AT [place] [id number] [facility], [id number]: Job Putter Up And Ticket Preparer/Guide Dog Mobility Instructor [id number] for [place], Feli POCT-GLUCOSE [id number] 16:31:00* Test Item Value Reference Range Comments POC-GLUCOSE METER (BEAKER) (test qzwr=7918) 82 mg/dL 70-110 : TESTED AT [place] [id number] [facility], [id number]: Job Putter Up And Ticket Preparer/Guide Dog Mobility Instructor [place]=[id number] for CHARLES, ROBB RAD, CHEST, 1 VIEW, NON [id number] 15:04:00Reason for exam:->heart failureShould this be performed at the bedside?->YesFINAL REPORT INDICATION: heart failure COMPARISON: December 29, 2018 TECHNIQUE: Single frontal view of the chest. FINDINGS: Lungs and pleura: Scattered bilateral interstitial opacities and central pulmonary venous congestion. No focal pneumonia. Lungs are hypoinflated. No effusion.Heart and mediastinum: Normal heart size. Unremarkable mediastinal contours.Osseous structures: No acute abnormality.Other: None. Signed: Sammi Lux Verified Reinaldo e/Time: 04/13/2019 15:04:48 Reading Location: [facility] Radiology Reading R oom B-TYPE NATRIURETIC FACTOR (BNP)2019-04-13 11:32:00* Test Item Value Reference Range Comments B-TYPE NATRIURETIC PEPTIDE (BEAKER) (test obmc=445) 1016 pg/mL 0-100 [id number] 09:05:00* Test Item Value Reference Range Comments PROSTATE SPECIFIC ANTIGEN (BEAKER) (test suvp=498) 3.5 ng/mL 0.0-4.0 [id number] 09:05:00* Test Item Value Reference Range Comments THYROID STIMULATING HORMONE (BEAKER) (test gjjr=458) 2.13 uIU/mL 0.35-4.94 LIPID [id number] 08:45:00* Test Item Value Reference Range Comments TRIGLYCERIDES (BEAKER) (test bcge=189) 104 mg/dL CHOLESTEROL (BEAKER) (test gadx=812) 108 mg/dL HDL CHOLESTEROL (BEAKER) (test wnzt=043) 30 mg/dL LDL CHOLESTEROL CALCULATED (BEAKER) (test yzab=732) 57 mg/dL Triglyceride Reference Range: Low Risk <150 Borderline 150-199 High Risk 200-499 Very High Risk >=500Cholesterol Reference Range: Low Risk <200 Borderline 200-239 High Risk >240HDL Cholesterol Reference Range: Low Risk >=60 High Risk <40LDL Cholesterol Reference Range: Optimal <100 Near Optimal 100-129 Borderline 130-159 High 160-189 Very High >=190 BASIC METABOLIC [id number] 08:45:00* Test Item Value Reference Range Comments SODIUM (BEAKER) (test ezfw=883) 143 meq/L 136-145 POTASSIUM (BEAKER) (test bupe=298) 4.1 meq/L 3.5-5.1 CHLORIDE (BEAKER) (test gqgl=944) 110 meq/L 98-107 CO2 (BEAKER) (test tmgn=939) 22 meq/L 22-29 BLOOD UREA NITROGEN (BEAKER) (test vupl=183) 20 mg/dL 7-21 CREATININE (BEAKER) (test gccl=514) 0.99 mg/dL 0.57-1.25 GLUCOSE RANDOM (BEAKER) (test hcos=684) 117 mg/dL 70-105 CALCIUM (BEAKER) (test tkgl=597) 10.1 mg/dL 8.4-10.2 EGFR (BEAKER) (test ksev=8216) 73 mL/min/1.73 sq m ESTIMATED GFR IS NOT ACCURATE CREATININE CLEARANCE IN PREDICTING GLOMERULAR FILTRATION RATE. ESTIMATED GFR IS NOT APPLICABLE FOR DIALYSIS PATIENTS. HEPATIC FUNCTION [id number] 08:45:00* Test Item Value Reference Range Comments TOTAL PROTEIN (BEAKER) (test bmdn=283) 6.9 gm/dL 6.0-8.3 ALBUMIN (BEAKER) (test clcw=4972) 4.3 g/dL 3.5-5.0 BILIRUBIN TOTAL (BEAKER) (test seri=125) 1.9 mg/dL 0.2-1.2 BILIRUBIN DIRECT (BEAKER) (test wwoh=207) 1.0 mg/dL 0.1-0.5 ALKALINE PHOSPHATASE (BEAKER) (test muob=650) 67 U/L 40-150 AST (SGOT) (BEAKER) (test jrmo=047) 14 U/L 5-34 ALT (SGPT) (BEAKER) (test ivek=452) 16 U/L 6-55 PROTHROMBIN [id number] 08:23:00* Test Item Value Reference Range Comments PROTIME (BEAKER) (test kavr=028) 28.8 seconds 11.9-14.2 INR (BEAKER) (test kcfu=180) 2.9 <=5.9 Effective 09/17/2018: PT Reference Range ChangeNew: 11.9-14.2 Previous: 11.7-14. 7RECOMMENDED COUMADIN/WARFARIN INR THERAPY RANGESSTANDARD DOSE: 2.0-3.0 Include s: PROPHYLAXIS for venous thrombosis, systemic embolization; TREATMENT for venou s thrombosis and/or pulmonary embolus.HIGH RISK: Target INR is 2.5-3.5 for patie nts wiht mechanical heart valves.CBC W/PLT COUNT & AUTO [id number] 08:19:00* Test Item Value Reference Range Comments WHITE BLOOD CELL COUNT (BEAKER) (test lvam=988) 10.0 K/ L 3.5-10.5 RED BLOOD CELL COUNT (BEAKER) (test team=312) 4.38 M/ L 4.63-6.08 HEMOGLOBIN (BEAKER) (test rqgu=732) 12.8 GM/DL 13.7-17.5 HEMATOCRIT (BEAKER) (test aldo=914) 41.3 % 40.1-51.0 MEAN CORPUSCULAR VOLUME (BEAKER) (test gpmr=325) 94.3 fL 79.0-92.2 MEAN CORPUSCULAR HEMOGLOBIN (BEAKER) (test wheg=793) 29.2 pg 25.7-32.2 MEAN CORPUSCULAR HEMOGLOBIN CONC (BEAKER) (test tuqw=845) 31.0 GM/DL 32.3-36.5 RED CELL DISTRIBUTION WIDTH (BEAKER) (test uhqk=070) 15.9 % 11.6-14.4 PLATELET COUNT (BEAKER) (test iqnz=235) 244 K/CU MM 150-450 MEAN PLATELET VOLUME (BEAKER) (test qxks=654) 10.7 fL 9.4-12.4 NUCLEATED RED BLOOD CELLS (BEAKER) (test jxbd=578) 0 /100 WBC 0-0 NEUTROPHILS RELATIVE PERCENT (BEAKER) (test ingm=626) 72 % LYMPHOCYTES RELATIVE PERCENT (BEAKER) (test hcmr=343) 15 % MONOCYTES RELATIVE PERCENT (BEAKER) (test zxvp=576) 8 % EOSINOPHILS RELATIVE PERCENT (BEAKER) (test bpro=258) 3 % BASOPHILS RELATIVE PERCENT (BEAKER) (test vdtz=408) 1 % NEUTROPHILS ABSOLUTE COUNT (BEAKER) (test sqxy=993) 7.20 K/ L 1.78-5.38 LYMPHOCYTES ABSOLUTE COUNT (BEAKER) (test jasz=486) 1.55 K/ L 1.32-3.57 MONOCYTES ABSOLUTE COUNT (BEAKER) (test ckju=662) 0.82 K/ L 0.30-0.82 EOSINOPHILS ABSOLUTE COUNT (BEAKER) (test vxqf=883) 0.30 K/ L 0.04-0.54 BASOPHILS ABSOLUTE COUNT (BEAKER) (test hcom=114) 0.07 K/ L 0.01-0.08 IMMATURE GRANULOCYTES-RELATIVE PERCENT (BEAKER) (test nmfn=8222) 1 % 0-1 PROTHROMBIN TIME/[id number] 10:45:00* Test Item Value Reference Range Comments PROTIME (BEAKER) (test mmjw=886) 26.6 seconds 11.9-14.2 INR (BEAKER) (test iwaf=526) 2.6 <=5.9 Effective 09/17/2018: PT Reference Range ChangeNew: 11.9-14.2 Previous: 11.7-14. 7RECOMMENDED COUMADIN/WARFARIN INR THERAPY RANGESSTANDARD DOSE: 2.0-3.0 Include s: PROPHYLAXIS for venous thrombosis, systemic embolization; TREATMENT for venou s thrombosis and/or pulmonary embolus.HIGH RISK: Target INR is 2.5-3.5 for patie nts wiht mechanical heart valves.HEMOGLOBIN [id number] 10:21:00* Test Item Value Reference Range Comments HEMOGLOBIN A1C (BEAKER) (test zrer=947) 7.1 % 4.3-6.1 [id number] 09:29:00* Test Item Value Reference Range Comments PROSTATE SPECIFIC ANTIGEN (BEAKER) (test gnvf=128) 1.8 ng/mL 0.0-4.0 [id number] 09:29:00* Test Item Value Reference Range Comments THYROID STIMULATING HORMONE (BEAKER) (test comf=900) 3.27 uIU/mL 0.35-4.94 LIPID [id number] 09:28:00* Test Item Value Reference Range Comments TRIGLYCERIDES (BEAKER) (test wjkw=733) 339 mg/dL Specimen slightly hemolyzed CHOLESTEROL (BEAKER) (test kmwk=636) 154 mg/dL Specimen slightly hemolyzed HDL CHOLESTEROL (BEAKER) (test drmb=921) 32 mg/dL LDL CHOLESTEROL CALCULATED (BEAKER) (test zalz=048) 54 mg/dL Triglyceride Reference Range: Low Risk <150 Borderline 150-199 High Risk 200-499 Very High Risk >=500Cholesterol Reference Range: Low Risk <200 Borderline 200-239 High Risk >240HDL Cholesterol Reference Range: Low Risk >=60 High Risk <40LDL Cholesterol Reference Range: Optimal <100 Near Optimal 100-129 Borderline 130-159 High 160-189 Very High >=190 B-TYPE NATRIURETIC FACTOR (BNP)2018-12-29 09:17:00* Test Item Value Reference Range Comments B-TYPE NATRIURETIC PEPTIDE (BEAKER) (test kmqv=884) 284 pg/mL 0-100 RAD, CHEST, 2 [id number] 09:08:00Reason for Exam:->A FIBFINAL REPORT INDICATION: A FIB COMPARISON: January 17, 2018 TECHNIQUE: Frontal and lateral views of the chest. FINDINGS: Lungs and pleura: Clear lungs. No effusion.Heart and mediastinum: Normal heart size. Stable me diastinal surgical changes.Osseous structures: No acute abnormality.Additional f indings: None. IMPRESSION: No acute intrathoracic abnormality. Signed: Alber pisano JR, Dave So Verified Date/Time: 12/29/2018 09:08:22 Reading Locat ion: [facility] Reading Room C METABOLIC [id number] 09:07:00* Test Item Value Reference Range Comments SODIUM (BEAKER) (test kbyv=927) 140 meq/L 136-145 POTASSIUM (BEAKER) (test bisd=025) 4.8 meq/L 3.5-5.1 Specimen slightly hemolyzed CHLORIDE (BEAKER) (test tqpd=984) 105 meq/L 98-107 CO2 (BEAKER) (test ufto=866) 25 meq/L 22-29 BLOOD UREA NITROGEN (BEAKER) (test pbzc=788) 15 mg/dL 7-21 CREATININE (BEAKER) (test pron=346) 1.17 mg/dL 0.57-1.25 Specimen slightly hemolyzed GLUCOSE RANDOM (BEAKER) (test tqoc=101) 124 mg/dL 70-105 CALCIUM (BEAKER) (test zdlu=714) 10.5 mg/dL 8.4-10.2 EGFR (BEAKER) (test ozyr=8663) 60 mL/min/1.73 sq m ESTIMATED GFR IS NOT ACCURATE CREATININE CLEARANCE IN PREDICTING GLOMERULAR FILTRATION RATE. ESTIMATED GFR IS NOT APPLICABLE FOR DIALYSIS PATIENTS. HEPATIC FUNCTION [id number] 09:07:00* Test Item Value Reference Range Comments TOTAL PROTEIN (BEAKER) (test fuba=708) 7.7 gm/dL 6.0-8.3 Specimen slightly hemolyzed ALBUMIN (BEAKER) (test xlcn=2194) 4.5 g/dL 3.5-5.0 Specimen slightly hemolyzed BILIRUBIN TOTAL (BEAKER) (test majt=500) 0.8 mg/dL 0.2-1.2 Specimen slightly hemolyzed BILIRUBIN DIRECT (BEAKER) (test mtyf=774) 0.3 mg/dL 0.1-0.5 Specimen slightly hemolyzed ALKALINE PHOSPHATASE (BEAKER) (test yjvm=384) 55 U/L 40-150 AST (SGOT) (BEAKER) (test jnbo=633) 22 U/L 5-34 Specimen slightly hemolyzed ALT (SGPT) (BEAKER) (test ptwz=904) 29 U/L 6-55 Specimen slightly hemolyzed CBC W/PLT COUNT & AUTO [id number] 08:52:00* Test Item Value Reference Range Comments WHITE BLOOD CELL COUNT (BEAKER) (test alcx=426) 8.9 K/ L 3.5-10.5 RED BLOOD CELL COUNT (BEAKER) (test gmrl=859) 4.92 M/ L 4.63-6.08 HEMOGLOBIN (BEAKER) (test tvny=623) 14.8 GM/DL 13.7-17.5 HEMATOCRIT (BEAKER) (test yubw=915) 46.2 % 40.1-51.0 MEAN CORPUSCULAR VOLUME (BEAKER) (test lydb=265) 93.9 fL 79.0-92.2 MEAN CORPUSCULAR HEMOGLOBIN (BEAKER) (test zlgj=219) 30.1 pg 25.7-32.2 MEAN CORPUSCULAR HEMOGLOBIN CONC (BEAKER) (test idsk=126) 32.0 GM/DL 32.3-36.5 RED CELL DISTRIBUTION WIDTH (BEAKER) (test zygb=815) 15.0 % 11.6-14.4 PLATELET COUNT (BEAKER) (test cnlk=542) 202 K/CU MM 150-450 MEAN PLATELET VOLUME (BEAKER) (test drxh=058) 10.3 fL 9.4-12.4 NUCLEATED RED BLOOD CELLS (BEAKER) (test ifdi=687) 0 /100 WBC 0-0 NEUTROPHILS RELATIVE PERCENT (BEAKER) (test lvby=162) 63 % LYMPHOCYTES RELATIVE PERCENT (BEAKER) (test wmki=968) 25 % MONOCYTES RELATIVE PERCENT (BEAKER) (test jgxm=303) 8 % EOSINOPHILS RELATIVE PERCENT (BEAKER) (test tira=259) 4 % BASOPHILS RELATIVE PERCENT (BEAKER) (test gbdc=686) 1 % NEUTROPHILS ABSOLUTE COUNT (BEAKER) (test sckj=937) 5.57 K/ L 1.78-5.38 LYMPHOCYTES ABSOLUTE COUNT (BEAKER) (test udnl=388) 2.18 K/ L 1.32-3.57 MONOCYTES ABSOLUTE COUNT (BEAKER) (test gqho=955) 0.69 K/ L 0.30-0.82 EOSINOPHILS ABSOLUTE COUNT (BEAKER) (test agdj=598) 0.31 K/ L 0.04-0.54 BASOPHILS ABSOLUTE COUNT (BEAKER) (test eznm=013) 0.05 K/ L 0.01-0.08 IMMATURE GRANULOCYTES-RELATIVE PERCENT (BEAKER) (test drry=0763) 1 % 0-1 [id number] 11:44:00* Test Item Value Reference Range Comments PROSTATE SPECIFIC ANTIGEN (BEAKER) (test yitz=912) 1.8 ng/mL 0.0-4.0 [id number] 10:52:00* Test Item Value Reference Range Comments THYROID STIMULATING HORMONE (BEAKER) (test lmoe=816) 2.98 uIU/mL 0.35-4.94 LIPID [id number] 09:24:00* Test Item Value Reference Range Comments TRIGLYCERIDES (BEAKER) (test yibq=957) 312 mg/dL CHOLESTEROL (BEAKER) (test epag=281) 139 mg/dL HDL CHOLESTEROL (BEAKER) (test lslr=090) 29 mg/dL LDL CHOLESTEROL CALCULATED (BEAKER) (test vinp=231) 48 mg/dL Triglyceride Reference Range: Low Risk <150 Borderline 150-199 High Risk 200-499 Very High Risk >=500Cholesterol Reference Range: Low Risk <200 Borderline 200-239 High Risk >240HDL Cholesterol Reference Range: Low Risk >=60 High Risk <40LDL Cholesterol Reference Range: Optimal <100 Near Optimal 100-129 Borderline 130-159 High 160-189 Very High >=190 BASIC METABOLIC [id number] 09:24:00* Test Item Value Reference Range Comments SODIUM (BEAKER) (test uzoa=767) 142 meq/L 136-145 POTASSIUM (BEAKER) (test fntd=684) 4.4 meq/L 3.5-5.1 CHLORIDE (BEAKER) (test thll=679) 106 meq/L 98-107 CO2 (BEAKER) (test iuhj=273) 26 meq/L 22-29 BLOOD UREA NITROGEN (BEAKER) (test pytu=206) 18 mg/dL 7-21 CREATININE (BEAKER) (test ouiw=910) 1.11 mg/dL 0.57-1.25 GLUCOSE RANDOM (BEAKER) (test cknn=186) 128 mg/dL 70-105 CALCIUM (BEAKER) (test lxbi=967) 10.8 mg/dL 8.4-10.2 EGFR (BEAKER) (test plan=0609) 64 mL/min/1.73 sq m ESTIMATED GFR IS NOT ACCURATE CREATININE CLEARANCE IN PREDICTING GLOMERULAR FILTRATION RATE. ESTIMATED GFR IS NOT APPLICABLE FOR DIALYSIS PATIENTS. HEPATIC FUNCTION [id number] 09:24:00* Test Item Value Reference Range Comments TOTAL PROTEIN (BEAKER) (test ltas=159) 7.8 gm/dL 6.0-8.3 ALBUMIN (BEAKER) (test xhgu=9842) 4.6 g/dL 3.5-5.0 BILIRUBIN TOTAL (BEAKER) (test yuxt=648) 0.6 mg/dL 0.2-1.2 BILIRUBIN DIRECT (BEAKER) (test spbg=865) 0.2 mg/dL 0.1-0.5 ALKALINE PHOSPHATASE (BEAKER) (test znvi=343) 89 U/L 40-150 AST (SGOT) (BEAKER) (test oybh=726) 19 U/L 5-34 ALT (SGPT) (BEAKER) (test ikge=587) 22 U/L 6-55 PROTHROMBIN [id number] 09:01:00* Test Item Value Reference Range Comments PROTIME (BEAKER) (test ivut=619) 27.8 seconds 11.7-14.7 INR (BEAKER) (test lcfg=656) 2.6 <=5.9 RECOMMENDED COUMADIN/WARFARIN INR THERAPY RANGESSTANDARD DOSE: 2.0 - 3.0 Inclu ne: PROPHYLAXIS for venous thrombosis, systemic embolization; TREATMENT for antonia ous thrombosis and/or pulmonary embolus.HIGH RISK: Target INR is 2.5-3.5 for pat ients with mechanical heart valves.CBC W/PLT COUNT & AUTO [id number] 08:47:00* Test Item Value Reference Range Comments WHITE BLOOD CELL COUNT (BEAKER) (test batp=243) 9.5 K/ L 3.5-10.5 RED BLOOD CELL COUNT (BEAKER) (test qcwl=222) 5.24 M/ L 4.63-6.08 HEMOGLOBIN (BEAKER) (test cgkp=100) 13.8 GM/DL 13.7-17.5 HEMATOCRIT (BEAKER) (test ezap=422) 45.0 % 40.1-51.0 MEAN CORPUSCULAR VOLUME (BEAKER) (test zhwe=392) 85.9 fL 79.0-92.2 MEAN CORPUSCULAR HEMOGLOBIN (BEAKER) (test trpc=757) 26.3 pg 25.7-32.2 MEAN CORPUSCULAR HEMOGLOBIN CONC (BEAKER) (test ilxe=744) 30.7 GM/DL 32.3-36.5 RED CELL DISTRIBUTION WIDTH (BEAKER) (test iqzn=668) 15.0 % 11.6-14.4 PLATELET COUNT (BEAKER) (test qnuk=970) 280 K/CU MM 150-450 MEAN PLATELET VOLUME (BEAKER) (test pddx=982) 9.9 fL 9.4-12.4 NUCLEATED RED BLOOD CELLS (BEAKER) (test eaez=741) 0 /100 WBC 0-0 NEUTROPHILS RELATIVE PERCENT (BEAKER) (test zwrf=310) 59 % LYMPHOCYTES RELATIVE PERCENT (BEAKER) (test fnsm=820) 25 % MONOCYTES RELATIVE PERCENT (BEAKER) (test ngie=499) 9 % EOSINOPHILS RELATIVE PERCENT (BEAKER) (test kcmv=040) 5 % BASOPHILS RELATIVE PERCENT (BEAKER) (test sdsv=341) 1 % NEUTROPHILS ABSOLUTE COUNT (BEAKER) (test dzou=980) 5.62 K/ L 1.78-5.38 LYMPHOCYTES ABSOLUTE COUNT (BEAKER) (test ecft=730) 2.38 K/ L 1.32-3.57 MONOCYTES ABSOLUTE COUNT (BEAKER) (test cmpi=792) 0.85 K/ L 0.30-0.82 EOSINOPHILS ABSOLUTE COUNT (BEAKER) (test npyk=718) 0.49 K/ L 0.04-0.54 BASOPHILS ABSOLUTE COUNT (BEAKER) (test ltgg=906) 0.06 K/ L 0.01-0.08 IMMATURE GRANULOCYTES-RELATIVE PERCENT (BEAKER) (test oeof=5316) 1 % 0-1 MR, MRA, BRAIN, [id number] 12:42:00FINAL REPORT MRA head with and without contrast Comparison: None Reason for exam: TIA Discussion: 2 D and 3-D lhrj-wv-tspovo and contrast-enhanced MRA of the arch, great vessels, and neck, and 3-D hukr-zi-vutzke MRA head was provided with maximal intensity projection 3-D reconstructions of the imaged arterial vasculatures. NASCET criteria are utilized when considering stenosis. Normal flow intracranial internal carotid arteries and in the carotid terminus branches proximally both sides. Normal vertebrobasilar and proximal posterior cerebral artery flow. Note is made of a left vertebral artery that terminates as the PICA. There is prominent posterior communicating arteries and a hypoplastic left P1 segment. Impressions: Negative MRA head pre and postcontrast. Signed: Bobbi Blanco Verified Date/Time: 01/29/2018 12:42:34 Reading Location: [address] Neuro Reading Room , BRAIN, [id number] 12:03:00FINAL REPORT MRI brain with and without contrast Comparison: Head CT January 17 Reason for exam: TIA Discussion: Multiplanar MR imaging of the brain was provided xyi-vqo-efpt IV gadolinium administration using T1, T2, FLAIR, T2 star, diffusion weighted sequences, and ADC map imaging. There are no intracranial hematomas, masses, hydrocephalus, shift, or extra-axial c ollections. Chronic microvascular changes are present in both cerebral hemispher es. One particular lesion of the right-sided frontal parietal centrum semiovale has diffusion weighted hyperintensity but without definitive diffusion restricti on on ADC map. There is subtle associated enhancement with this lesion. A subacu te microvascular lacunar infarct is suspected. No other diffusion restriction or abnormal enhancement. Flow-voids are seen in the basilar and internal carotid a rteries as well as in the large posterior dural sinuses. The pineal, sella, and craniocervical junction regions are unremarkable. The visualized orbital content s, paranasal sinuses, skullbase and surrounding soft tissues are unremarkable. Impressions: Suspected subacute enhancing microvascular ischemic focus of the right frontal parietal centrum semiovale with T2 weighted child through. No he matoma or mass effect. Other chronic microvascular changes are present as well. Signed: Bobbi Blanco Verified Date/Time: 01/29/2018 12:03:34 Reading L ocation: [facility] B1 C013V Neuro Reading Room GLOBIN [id number] 12:30:00* Test Item Value Reference Range Comments HEMOGLOBIN A1C (BEAKER) (test twgu=816) 7.4 % 4.3-6.1 URINALYSIS W/ [id number] 08:29:00* Test Item Value Reference Range Comments COLOR (BEAKER) (test tkbl=538) Yellow CLARITY (BEAKER) (test rqxb=981) Clear SPECIFIC GRAVITY UA (BEAKER) (test stes=753) 1.019 1.001-1.035 PH UA (BEAKER) (test ttke=071) 5.5 5.0-8.0 PROTEIN UA (BEAKER) (test fznu=527) 50 mg/dL Negative GLUCOSE UA (BEAKER) (test sbmk=308) Negative Negative KETONES UA (BEAKER) (test sxuk=043) Negative Negative BILIRUBIN UA (BEAKER) (test fgyl=433) Negative Negative BLOOD UA (BEAKER) (test qqke=482) Negative Negative NITRITE UA (BEAKER) (test syar=992) Negative Negative LEUKOCYTE ESTERASE UA (BEAKER) (test yjyl=535) Negative Negative UROBILINOGEN UA (BEAKER) (test otym=559) 2.0 mg/dL 0.2-1.0 RBC UA (BEAKER) (test nbvc=632) < /HPF WBC UA (BEAKER) (test sent=029) 3 /HPF MUCUS (BEAKER) (test tuqi=3978) Occasional SOURCE(BEAKER) (test lczd=3058) [id number] 06:32:00* Test Item Value Reference Range Comments MAGNESIUM (BEAKER) (test crxq=299) 2.0 mg/dL 1.6-2.6 BASIC METABOLIC [id number] 06:32:00* Test Item Value Reference Range Comments SODIUM (BEAKER) (test kqcy=299) 141 meq/L 136-145 POTASSIUM (BEAKER) (test zrqw=509) 3.8 meq/L 3.5-5.1 CHLORIDE (BEAKER) (test prjs=665) 108 meq/L 98-107 CO2 (BEAKER) (test nbxc=277) 24 meq/L 22-29 BLOOD UREA NITROGEN (BEAKER) (test jxnl=384) 16 mg/dL 7-21 CREATININE (BEAKER) (test ioab=746) 0.94 mg/dL 0.57-1.25 GLUCOSE RANDOM (BEAKER) (test udjh=755) 124 mg/dL 70-105 CALCIUM (BEAKER) (test nuwa=379) 10.3 mg/dL 8.4-10.2 EGFR (BEAKER) (test undp=3957) 78 mL/min/1.73 sq m ESTIMATED GFR IS NOT ACCURATE CREATININE CLEARANCE IN PREDICTING GLOMERULAR FILTRATION RATE. ESTIMATED GFR IS NOT APPLICABLE FOR DIALYSIS PATIENTS. POCT-GLUCOSE [id number] 23:49:00* Test Item Value Reference Range Comments POC-GLUCOSE METER (BEAKER) (test zbcc=5614) 133 mg/dL 70-110 TESTED AT [facility] [address] [facility] [address] CREATINE KINASE (CK), TOTAL AND [id number] 16:54:00* Test Item Value Reference Range Comments CREATINE KINASE TOTAL (BEAKER) (test jnkb=252) 89 U/L 29-200 CREATINE KINASE-MB (BEAKER) (test yhai=015) 1.6 ng/mL 0.0-6.6 CREATINE KINASE-MB INDEX (BEAKER) (test aetx=127) 1.8 % CK-MB Reference Range:<6.7 Normal6.7-10.0 Borderline>10.0 Abnormal TROPONIN [id number] 16:54:00* Test Item Value Reference Range Comments TROPONIN I (BEAKER) (test whvf=689) < ng/mL 0.00-0.03 Troponin I (TnI) levels must be interpreted in the context of the presenting sym ptoms and the clinical findings. Elevated TnI levels indicate myocardial damage, but are not specific for ischemic heart disease. Elevated TnI levels are seen in patients with other cardiac conditions (including myocarditis and congestive h eart failure), and slight TnI elevations occur in patients with other conditions , including sepsis, renal failure, acidosis, acute neurological disease, and per sistent tachyarrhythmia.PT/[id number] 16:39:00* Test Item Value Reference Range Comments PROTIME (BEAKER) (test bqia=443) 23.7 seconds 11.7-14.7 INR (BEAKER) (test uzyc=364) 2.1 <=5.9 PARTIAL THROMBOPLASTIN TIME (BEAKER) (test skua=536) 32.6 seconds 22.5-36.0 RECOMMENDED COUMADIN/WARFARIN INR THERAPY RANGESSTANDARD DOSE: 2.0 - 3.0 Inclu ne: PROPHYLAXIS for venous thrombosis, systemic embolization; TREATMENT for antonia ous thrombosis and/or pulmonary embolus.HIGH RISK: Target INR is 2.5-3.5 for pat ients with mechanical heart valves.BASIC METABOLIC [id number] 15:53:00* Test Item Value Reference Range Comments SODIUM (BEAKER) (test mdoy=376) 141 meq/L 136-145 POTASSIUM (BEAKER) (test uuhx=886) 4.2 meq/L 3.5-5.1 Specimen slightly hemolyzed CHLORIDE (BEAKER) (test lrlh=849) 107 meq/L 98-107 CO2 (BEAKER) (test obcu=530) 24 meq/L 22-29 BLOOD UREA NITROGEN (BEAKER) (test bdwj=618) 16 mg/dL 7-21 CREATININE (BEAKER) (test gxyt=688) 1.05 mg/dL 0.57-1.25 Specimen slightly hemolyzed GLUCOSE RANDOM (BEAKER) (test eomg=486) 118 mg/dL 70-105 CALCIUM (BEAKER) (test wpqy=144) 11.1 mg/dL 8.4-10.2 EGFR (BEAKER) (test kpug=4875) 68 mL/min/1.73 sq m ESTIMATED GFR IS NOT ACCURATE CREATININE CLEARANCE IN PREDICTING GLOMERULAR FILTRATION RATE. ESTIMATED GFR IS NOT APPLICABLE FOR DIALYSIS PATIENTS. RAD, CHEST, 1 VIEW, NON [id number] 15:50:00Reason for exam:->NEUROLOGIC PROBLEMShould this be performed at the bedside?->YesFINAL REPORT TECHNIQUE: Single view of the chest. COMPARISON: 04/23/2017 FINDINGS: The cardiac silhouette is within normal limits. Postsurgical changes in the mediastinum. Lungs are clear. No acute skeletal abnormality. Soft tissues appear unremarkable. IMPRESSION: No acute cardiopulmonary disease. Signed: Jareth Radfordeport Verified Date/Time: 01/17/2018 15:50:10 Reading Location: [facility] B1 [id number] Consult Reading Room W/PLT COUNT & AUTO [id number] 15:31:00* Test Item Value Reference Range Comments WHITE BLOOD CELL COUNT (BEAKER) (test inmk=660) 10.9 K/ L 3.5-10.5 RED BLOOD CELL COUNT (BEAKER) (test orsf=640) 5.31 M/ L 4.63-6.08 HEMOGLOBIN (BEAKER) (test ppda=859) 13.3 GM/DL 13.7-17.5 HEMATOCRIT (BEAKER) (test ypwg=869) 44.6 % 40.1-51.0 MEAN CORPUSCULAR VOLUME (BEAKER) (test auyo=450) 84.0 fL 79.0-92.2 MEAN CORPUSCULAR HEMOGLOBIN (BEAKER) (test yjok=393) 25.0 pg 25.7-32.2 MEAN CORPUSCULAR HEMOGLOBIN CONC (BEAKER) (test aqgg=703) 29.8 GM/DL 32.3-36.5 RED CELL DISTRIBUTION WIDTH (BEAKER) (test xjfy=820) 15.2 % 11.6-14.4 PLATELET COUNT (BEAKER) (test jhqa=063) 312 K/CU MM 150-450 MEAN PLATELET VOLUME (BEAKER) (test npen=677) 10.2 fL 9.4-12.4 NUCLEATED RED BLOOD CELLS (BEAKER) (test hvci=533) 0 /100 WBC 0-0 NEUTROPHILS RELATIVE PERCENT (BEAKER) (test ngqj=016) 67 % LYMPHOCYTES RELATIVE PERCENT (BEAKER) (test xxfy=093) 21 % MONOCYTES RELATIVE PERCENT (BEAKER) (test frag=058) 8 % EOSINOPHILS RELATIVE PERCENT (BEAKER) (test teyb=203) 3 % BASOPHILS RELATIVE PERCENT (BEAKER) (test qpyw=203) 1 % NEUTROPHILS ABSOLUTE COUNT (BEAKER) (test rzsm=289) 7.22 K/ L 1.78-5.38 LYMPHOCYTES ABSOLUTE COUNT (BEAKER) (test mqmc=868) 2.26 K/ L 1.32-3.57 MONOCYTES ABSOLUTE COUNT (BEAKER) (test nwlp=984) 0.88 K/ L 0.30-0.82 EOSINOPHILS ABSOLUTE COUNT (BEAKER) (test wiwl=915) 0.34 K/ L 0.04-0.54 BASOPHILS ABSOLUTE COUNT (BEAKER) (test zeiy=897) 0.07 K/ L 0.01-0.08 IMMATURE GRANULOCYTES-RELATIVE PERCENT (BEAKER) (test grcx=2472) 1 % 0-1 CT, BRAIN, WITHOUT [id number] 15:05:00Reason for exam:->NEUROLOGIC PROBLEMWhat is the patient's sedation requirement?->No SedationFINAL REPORT CT head without contrast 01/17/2018 3:04 PM CLINICAL HISTORY: Focal neuro deficit, new, fixed or worsening, >6 hoursNEUROLOGIC PROBLEM TECHNIQUE: Axial noncontrast CT images through the head were obtained. This examination was performed according to our departmental dose optimization program, which includes automated exposure control, adjustment of the mA and/or kV according to patient size, and/or use of iterated reconstruction technique. COMPARISON: None available FINDINGS: There is no hemorrhage, extra-axial collection, mass, hydrocephalus, or midline shift. There is negligible m icrovascular ischemia in the supratentorial white matter. There is atherosclerot ic calcification of the intracranial arterial vasculature. There is generalized parenchymal volume loss. The visualized paranasal sinuses and mastoid air cells are well aerated. The skull is intact. IMPRESSION: No intracranial hemorrhage or mass effect. Chronic appearing microvascular and involutional changes. If conc bull for acute pathology persists, further evaluation with MRI is recommended. Si gned: Delgado Barraza MDReport Verified Date/Time: 01/17/2018 15:05:37 Reading Location: [facility] Radiology Reading Room , CARDIAC PERFUSION MULTIPLE STUDIES, REST AND [id number] 14:41:00Reason for Exam:->CHEST PAINFINAL REPORT PROCEDURE: Rest/Stress MYOCARDIAL PERFUSION PET with regadenoson\XA9\ CPT CODE: 80080 INDICATION: Chest pain. HI STORY: Cardiac risk factors: Diabetes, hypertension, hyperlipidemia. Other c ardiovascular history: No reported CAD. Recent cardiac symptoms: Chest pain, dys pnea. Current cardiovascular-related medications: Aspirin, Lipitor, lisinopril, metoprolol, Plavix. PROTOCOL: Limited low-dose CT imaging was performed for attenuation correction. 36.9 mCi of Rb-82 chloride was injected iv at rest, and gated PET (positron emission tomography) images were obtained. Subsequently, 36. 6 mCi of Rb-82 chloride was injected iv at expected peak pharmacologic effect, a nd gated PET images were obtained. PRELIMINARY STRESS TEST DATA FROM NONINVASIV CARDIOLOGY: Pharmacologic stress was by 10-second iv infusion of 0.4 mg of regadenoson. Radiotracer was injected 30 seconds after start of stress. Heart r ate was 66 beats/min at rest and 85 beats/min (59% of MPHR) at tracer injection. BP was 130/60 mmHg at rest and 133/62 mmHg at tracer injection. Stress was stop ped for predetermined endpoint. The patient experienced dyspnea; treatment was n ot required. Preliminary ECG evaluation revealed sinus rhythm with first degree AV block and left bundle branch block at rest and no ischemic changes with stres s. (Final ECG interpretation and other stress and monitoring data are reported s eparately by Cardiology.) IMAGING FINDINGS: Study quality is good. Images o btained after rest and stress injections show normal LV activity. LV and RV volu mes appear normal. Gated images obtained at rest and with stress show hypokinesi s of the septum consistent with left bundle branch block. LVEF at rest is 49%. L VEF at stress is 52%. IMPRESSION: 1. Probably normal study. 2. Appropriate pharmacologic stress. 3. Normal myocardial perfusion. 4. Low normal resting LV function with septal hypokinesis consistent with left bundle branch block. No d eterioration of function is noted with pharmacologic stress. 5. Normal extracar diac tracer distribution. There is a well-circumscribed, hypodense lesion noted in the liver on CT which was present on prior study. 6. Compared to previous [facility] study on 01/31/2016, there is no significant change. Signed: Butch Lema Verified Date/Time: 08/13/2017 14:41:28 Reading Location: [address] Reading Room , CHEST, WITH [id number] 10:50:00FINAL REPORT INDICATION: 77-year-old male with pulmonary nodule. COMPARISON:Chest radiograph April 23, 2017Chest CT exams June 29, 2016 and January 31, 2016 TECHNIQUE: Chest CT exam WITH intravenous contrast. The exam was performed according to our department dose-optimization protocol, which includes automated exposure control, adjustments of mA and kV according to patie nt size. Iterative reconstructions are also sometimes employed. FINDINGS:There i s mosaic attenuation of the lung parenchyma, likely related to imaging acquisiti on at part expiration. Main pulmonary artery is normal in caliber and there is n o bronchiectasis. 3 mm nodule in the left lower lobe is unchanged. No suspicious pulmonary nodule is demonstrated. No consolidation, pulmonary edema, or pleural effusion. Circumscribed noncalcified homogeneous nonenhancing soft tissue densi ty nodule in the anterior mediastinum is unchanged in size measuring 1.5 x 1.4 x 1.1 cm. No paratracheal, subcarinal, or hilar lymphadenopathy. Patient is status post aortic valve replacement. Coronary artery calcification and mild cardiome colin noted. No pericardial effusion. Mild calcified plaque of the thoracic aorta demonstrated. Thoracic aorta normal in caliber. Healed median sternotomy and hi atal hernia noted. No suspicious osseous lesion demonstrated. Soft tissues unrem arkable. IMPRESSION: Mosaic attenuation of the lung parenchyma, likely related t o imaging acquisition at part expiration. 3 mm nodule in the left lower lobe unc hanged since January 2016. No imaging follow-up recommended. 1.5 cm nodule in t he anterior mediastinum. 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 If there is clinical concern for metastasis, follow-up chest CT in one year is recommended for further evaluation. Signed: Yovani King MDReport Verified Date/Time: 08/13/2017 10:50:23 Reading Location: [facility] Diagnostic Imaging [place] [id number] Electronically signed by: Chaim AIKEN 08/13/2017 10:50 AM [id number] 10:23:00* Test Item Value Reference Range Comments PROSTATE SPECIFIC ANTIGEN (BEAKER) (test gdwr=713) 1.8 ng/mL 0.0-4.0 [id number] 09:25:00* Test Item Value Reference Range Comments THYROID STIMULATING HORMONE (BEAKER) (test wehn=215) 3.04 uIU/mL 0.35-4.94 B-TYPE NATRIURETIC FACTOR (BNP)2017-08-13 09:09:00* Test Item Value Reference Range Comments B-TYPE NATRIURETIC PEPTIDE (BEAKER) (test agkz=007) 272 pg/mL 0-100 LIPID [id number] 09:00:00* Test Item Value Reference Range Comments TRIGLYCERIDES (BEAKER) (test sgny=764) 234 mg/dL CHOLESTEROL (BEAKER) (test rerx=660) 129 mg/dL HDL CHOLESTEROL (BEAKER) (test dzlb=028) 32 mg/dL LDL CHOLESTEROL CALCULATED (BEAKER) (test prys=585) 50 mg/dL Triglyceride Reference Range: Low Risk <150 Borderline 150-199 High Risk 200-499 Very High Risk >=500Cholesterol Reference Range: Low Risk <200 Borderline 200-239 High Risk >240HDL Cholesterol Reference Range: Low Risk >=60 High Risk <40LDL Cholesterol Reference Range: Optimal <100 Near Optimal 100-129 Borderline 130-159 High 160-189 Very High >=190 BASIC METABOLIC [id number] 09:00:00* Test Item Value Reference Range Comments SODIUM (BEAKER) (test skpg=439) 140 meq/L 136-145 POTASSIUM (BEAKER) (test dnnt=559) 4.5 meq/L 3.5-5.1 CHLORIDE (BEAKER) (test omra=353) 107 meq/L 98-107 CO2 (BEAKER) (test upnd=553) 24 meq/L 22-29 BLOOD UREA NITROGEN (BEAKER) (test ymep=234) 17 mg/dL 7-21 CREATININE (BEAKER) (test ravh=504) 1.05 mg/dL 0.57-1.25 GLUCOSE RANDOM (BEAKER) (test shxs=915) 132 mg/dL 70-105 CALCIUM (BEAKER) (test swuh=212) 10.7 mg/dL 8.4-10.2 EGFR (BEAKER) (test thcp=8997) 69 mL/min/1.73 sq m ESTIMATED GFR IS NOT ACCURATE CREATININE CLEARANCE IN PREDICTING GLOMERULAR FILTRATION RATE. ESTIMATED GFR IS NOT APPLICABLE FOR DIALYSIS PATIENTS. HEPATIC FUNCTION [id number] 09:00:00* Test Item Value Reference Range Comments TOTAL PROTEIN (BEAKER) (test scwa=210) 7.7 gm/dL 6.0-8.3 ALBUMIN (BEAKER) (test fmkr=8316) 4.7 g/dL 3.5-5.0 BILIRUBIN TOTAL (BEAKER) (test ylzp=038) 0.6 mg/dL 0.2-1.2 BILIRUBIN DIRECT (BEAKER) (test jabm=383) 0.2 mg/dL 0.1-0.5 ALKALINE PHOSPHATASE (BEAKER) (test sqsm=195) 66 U/L 40-150 AST (SGOT) (BEAKER) (test dera=037) 16 U/L 5-34 ALT (SGPT) (BEAKER) (test zihh=417) 23 U/L 6-55 PROTHROMBIN [id number] 08:44:00* Test Item Value Reference Range Comments PROTIME (BEAKER) (test dvem=544) 26.6 seconds 11.7-14.7 INR (BEAKER) (test llls=705) 2.5 <=5.9 RECOMMENDED COUMADIN/WARFARIN INR THERAPY RANGESSTANDARD DOSE: 2.0 - 3.0 Inclu ne: PROPHYLAXIS for venous thrombosis, systemic embolization; TREATMENT for antonia ous thrombosis and/or pulmonary embolus.HIGH RISK: Target INR is 2.5-3.5 for pat ients with mechanical heart valves.CBC W/PLT COUNT & AUTO [id number] 08:37:00* Test Item Value Reference Range Comments WHITE BLOOD CELL COUNT (BEAKER) (test oiee=399) 10.1 K/ L 3.5-10.5 RED BLOOD CELL COUNT (BEAKER) (test gpja=709) 5.10 M/ L 4.63-6.08 HEMOGLOBIN (BEAKER) (test yjie=595) 11.6 GM/DL 13.7-17.5 HEMATOCRIT (BEAKER) (test awle=922) 40.7 % 40.1-51.0 MEAN CORPUSCULAR VOLUME (BEAKER) (test tmhy=198) 79.8 fL 79.0-92.2 MEAN CORPUSCULAR HEMOGLOBIN (BEAKER) (test ctwx=223) 22.7 pg 25.7-32.2 MEAN CORPUSCULAR HEMOGLOBIN CONC (BEAKER) (test cxfd=416) 28.5 GM/DL 32.3-36.5 RED CELL DISTRIBUTION WIDTH (BEAKER) (test artg=295) 18.6 % 11.6-14.4 PLATELET COUNT (BEAKER) (test qhdz=267) 305 K/CU MM 150-450 MEAN PLATELET VOLUME (BEAKER) (test wpds=843) 9.9 fL 9.4-12.4 NUCLEATED RED BLOOD CELLS (BEAKER) (test knyc=630) 0 /100 WBC 0-0 NEUTROPHILS RELATIVE PERCENT (BEAKER) (test ohwq=946) 60 % LYMPHOCYTES RELATIVE PERCENT (BEAKER) (test zigs=084) 25 % MONOCYTES RELATIVE PERCENT (BEAKER) (test cwoa=672) 8 % EOSINOPHILS RELATIVE PERCENT (BEAKER) (test bqir=556) 6 % BASOPHILS RELATIVE PERCENT (BEAKER) (test dibb=931) 1 % NEUTROPHILS ABSOLUTE COUNT (BEAKER) (test hjbp=099) 6.07 K/ L 1.78-5.38 LYMPHOCYTES ABSOLUTE COUNT (BEAKER) (test ahoy=018) 2.49 K/ L 1.32-3.57 MONOCYTES ABSOLUTE COUNT (BEAKER) (test kunn=606) 0.82 K/ L 0.30-0.82 EOSINOPHILS ABSOLUTE COUNT (BEAKER) (test mdoz=754) 0.63 K/ L 0.04-0.54 BASOPHILS ABSOLUTE COUNT (BEAKER) (test wtsa=942) 0.07 K/ L 0.01-0.08 IMMATURE GRANULOCYTES-RELATIVE PERCENT (BEAKER) (test ugcw=6475) 1 % 0-1 [id number] 11:19:00* Test Item Value Reference Range Comments PROSTATE SPECIFIC ANTIGEN (BEAKER) (test fexb=042) 2.1 ng/mL 0.0-4.0 [id number] 10:16:00* Test Item Value Reference Range Comments THYROID STIMULATING HORMONE (BEAKER) (test zfmm=899) 2.46 uIU/mL 0.35-4.94 B-TYPE NATRIURETIC FACTOR (BNP)2017-04-23 09:34:00* Test Item Value Reference Range Comments B-TYPE NATRIURETIC PEPTIDE (BEAKER) (test omvr=283) 265 pg/mL 0-100 LIPID [id number] 09:34:00* Test Item Value Reference Range Comments TRIGLYCERIDES (BEAKER) (test qqth=901) 204 mg/dL CHOLESTEROL (BEAKER) (test ceff=750) 142 mg/dL HDL CHOLESTEROL (BEAKER) (test jjsv=886) 34 mg/dL LDL CHOLESTEROL CALCULATED (BEAKER) (test ufqh=385) 67 mg/dL Triglyceride Reference Range: Low Risk <150 Borderline 150-199 High Risk 200-499 Very High Risk >=500Cholesterol Reference Range: Low Risk <200 Borderline 200-239 High Risk >240HDL Cholesterol Reference Range: Low Risk >=60 High Risk <40LDL Cholesterol Reference Range: Optimal <100 Near Optimal 100-129 Borderline 130-159 High 160-189 Very High >=190 HEPATIC FUNCTION [id number] 09:34:00* Test Item Value Reference Range Comments TOTAL PROTEIN (BEAKER) (test qcsz=044) 7.5 gm/dL 6.0-8.3 ALBUMIN (BEAKER) (test gksz=1665) 4.5 g/dL 3.5-5.0 BILIRUBIN TOTAL (BEAKER) (test eqga=815) 0.7 mg/dL 0.2-1.2 BILIRUBIN DIRECT (BEAKER) (test aipn=145) 0.4 mg/dL 0.1-0.5 ALKALINE PHOSPHATASE (BEAKER) (test qdsa=013) 71 U/L 40-150 AST (SGOT) (BEAKER) (test rapf=324) 14 U/L 5-34 ALT (SGPT) (BEAKER) (test nczn=668) 23 U/L 6-55 BASIC METABOLIC [id number] 09:34:00* Test Item Value Reference Range Comments SODIUM (BEAKER) (test tolx=207) 141 meq/L 136-145 POTASSIUM (BEAKER) (test wauj=742) 4.0 meq/L 3.5-5.1 CHLORIDE (BEAKER) (test ozzx=814) 108 meq/L 98-107 CO2 (BEAKER) (test gpjq=263) 24 meq/L 22-29 BLOOD UREA NITROGEN (BEAKER) (test ukpu=806) 16 mg/dL 7-21 CREATININE (BEAKER) (test tqaj=515) 1.05 mg/dL 0.57-1.25 GLUCOSE RANDOM (BEAKER) (test szag=492) 162 mg/dL 70-105 CALCIUM (BEAKER) (test rhla=318) 10.3 mg/dL 8.4-10.2 EGFR (BEAKER) (test tchb=2232) 69 mL/min/1.73 sq m ESTIMATED GFR IS NOT ACCURATE CREATININE CLEARANCE IN PREDICTING GLOMERULAR FILTRATION RATE. ESTIMATED GFR IS NOT APPLICABLE FOR DIALYSIS PATIENTS. RAD, CHEST, 2 [id number] 09:32:00Reason for Exam:->AVRFINAL REPORT Chest two views compared to January 23 Discussion: Sternotomy changes are noted. Cardiopulmonary appearance unremarkable. No effusion or pneumothorax. Signed: Bobbi Blancoeport Verified Date/Time: 04/23/2017 09:32:09 Reading Location: [facility] Radiology Reading Room Opal ctronically signed by: BOBBI BLANCO M.D. on 04/23/2017 09:32 AM PROTHROMBIN [id number] 09:15:00* Test Item Value Reference Range Comments PROTIME (BEAKER) (test ngsn=335) 22.0 seconds 11.7-14.7 INR (BEAKER) (test prft=220) 1.9 <=5.9 RECOMMENDED COUMADIN/WARFARIN INR THERAPY RANGESSTANDARD DOSE: 2.0 - 3.0 Inclu ne: PROPHYLAXIS for venous thrombosis, systemic embolization; TREATMENT for antonia ous thrombosis and/or pulmonary embolus.HIGH RISK: Target INR is 2.5-3.5 for pat ients with mechanical heart valves.CBC W/PLT COUNT & AUTO [id number] 09:04:00* Test Item Value Reference Range Comments WHITE BLOOD CELL COUNT (BEAKER) (test qqrm=757) 9.5 K/ L 3.5-10.5 RED BLOOD CELL COUNT (BEAKER) (test tcpo=073) 4.92 M/ L 4.63-6.08 HEMOGLOBIN (BEAKER) (test ykoz=095) 11.1 GM/DL 13.7-17.5 HEMATOCRIT (BEAKER) (test ujyo=260) 39.0 % 40.1-51.0 MEAN CORPUSCULAR VOLUME (BEAKER) (test mbar=529) 79.3 fL 79.0-92.2 MEAN CORPUSCULAR HEMOGLOBIN (BEAKER) (test evol=091) 22.6 pg 25.7-32.2 MEAN CORPUSCULAR HEMOGLOBIN CONC (BEAKER) (test beba=813) 28.5 GM/DL 32.3-36.5 RED CELL DISTRIBUTION WIDTH (BEAKER) (test ljkm=140) 16.7 % 11.6-14.4 PLATELET COUNT (BEAKER) (test hxnt=411) 249 K/CU MM 150-450 MEAN PLATELET VOLUME (BEAKER) (test gavi=059) 9.7 fL 9.4-12.4 NUCLEATED RED BLOOD CELLS (BEAKER) (test vujk=122) 0 /100 WBC 0-0 NEUTROPHILS RELATIVE PERCENT (BEAKER) (test vduq=580) 61 % LYMPHOCYTES RELATIVE PERCENT (BEAKER) (test swbn=199) 21 % MONOCYTES RELATIVE PERCENT (BEAKER) (test sxrt=305) 9 % EOSINOPHILS RELATIVE PERCENT (BEAKER) (test ssrb=684) 8 % BASOPHILS RELATIVE PERCENT (BEAKER) (test vjvr=891) 1 % NEUTROPHILS ABSOLUTE COUNT (BEAKER) (test owje=985) 5.81 K/ L 1.78-5.38 LYMPHOCYTES ABSOLUTE COUNT (BEAKER) (test uzyv=329) 1.95 K/ L 1.32-3.57 MONOCYTES ABSOLUTE COUNT (BEAKER) (test ssfm=228) 0.88 K/ L 0.30-0.82 EOSINOPHILS ABSOLUTE COUNT (BEAKER) (test qzrt=043) 0.73 K/ L 0.04-0.54 BASOPHILS ABSOLUTE COUNT (BEAKER) (test fhyf=229) 0.08 K/ L 0.01-0.08 IMMATURE GRANULOCYTES-RELATIVE PERCENT (BEAKER) (test vaut=3665) 1 % 0-1 [id number] 14:38:00* Test Item Value Reference Range Comments PROSTATE SPECIFIC ANTIGEN (BEAKER) (test hojf=966) 1.5 ng/mL 0.0-4.0 CBC W/PLT COUNT & AUTO [id number] 11:35:00* Test Item Value Reference Range Comments WHITE BLOOD CELL COUNT (BEAKER) (test uzuf=261) 11.0 K/ L 4.0-10.0 RED BLOOD CELL COUNT (BEAKER) (test ldvl=508) 5.04 M/ L 4.20-5.80 HEMOGLOBIN (BEAKER) (test bbjw=182) 12.6 GM/DL 13.0-16.8 HEMATOCRIT (BEAKER) (test yhdy=868) 39.1 % 40.0-50.0 MEAN CORPUSCULAR VOLUME (BEAKER) (test ndry=156) 77.6 fL 82.0-98.0 MEAN CORPUSCULAR HEMOGLOBIN (BEAKER) (test lzsz=530) 25.1 pg 27.0-33.0 MEAN CORPUSCULAR HEMOGLOBIN CONC (BEAKER) (test bxjc=422) 32.4 GM/DL 32.0-36.0 RED CELL DISTRIBUTION WIDTH (BEAKER) (test umjh=045) 16.5 % 10.3-14.2 PLATELET COUNT (BEAKER) (test jnim=139) 292 K/CU MM 150-430 MEAN PLATELET VOLUME (BEAKER) (test oths=466) 8.1 fL 6.5-10.5 NUCLEATED RED BLOOD CELLS (BEAKER) (test zjis=230) 0 /100 WBC 0-0 NEUTROPHILS RELATIVE PERCENT (BEAKER) (test mzsd=823) 56 % LYMPHOCYTES RELATIVE PERCENT (BEAKER) (test utwg=579) 29 % MONOCYTES RELATIVE PERCENT (BEAKER) (test ygfi=691) 9 % EOSINOPHILS RELATIVE PERCENT (BEAKER) (test zgft=938) 5 % BASOPHILS RELATIVE PERCENT (BEAKER) (test ayde=127) 0 % NEUTROPHILS ABSOLUTE COUNT (BEAKER) (test zseu=127) 6.23 K/ L 1.80-8.00 LYMPHOCYTES ABSOLUTE COUNT (BEAKER) (test dhpt=482) 3.21 K/ L 1.48-4.50 MONOCYTES ABSOLUTE COUNT (BEAKER) (test socb=393) 1.00 K/ L 0.00-1.30 EOSINOPHILS ABSOLUTE COUNT (BEAKER) (test jubl=979) 0.58 K/ L 0.00-0.50 BASOPHILS ABSOLUTE COUNT (BEAKER) (test qhdb=748) 0.03 K/ L 0.00-0.20 [id number] 11:15:00* Test Item Value Reference Range Comments THYROID STIMULATING HORMONE (BEAKER) (test rkng=578) 4.05 uIU/mL 0.35-4.94 B-TYPE NATRIURETIC FACTOR (BNP)2016-06-29 11:00:00* Test Item Value Reference Range Comments B-TYPE NATRIURETIC PEPTIDE (BEAKER) (test ljkv=439) 145 pg/mL 0-100 PROTHROMBIN [id number] 10:44:00* Test Item Value Reference Range Comments PROTIME (BEAKER) (test upcq=114) 20.9 seconds 11.7-14.7 INR (BEAKER) (test twtz=292) 1.8 <=5.9 RECOMMENDED COUMADIN/WARFARIN INR THERAPY RANGESSTANDARD DOSE: 2.0 - 3.0 Inclu ne: PROPHYLAXIS for venous thrombosis, systemic embolization; TREATMENT for antonia ous thrombosis and/or pulmonary embolus.HIGH RISK: Target INR is 2.5-3.5 for pat ients with mechanical heart valves.LIPID [id number] 09:48:00* Test Item Value Reference Range Comments TRIGLYCERIDES (BEAKER) (test sggm=281) 436 mg/dL CHOLESTEROL (BEAKER) (test wwan=251) 163 mg/dL HDL CHOLESTEROL (BEAKER) (test fhey=467) 33 mg/dL Calculated LDL not valid if triglyceride >400 mg/dLTriglyceride Reference Range: Low Risk <150 Borderline 150-199 High Risk 200-499 Very High Risk >=500Cholesterol Reference Range: Low Risk <200 Borderline 200-239 High Risk >240HDL Cholesterol Reference Range: Low Risk >=60 High Risk <40LDL Cholesterol Reference Range: Optimal <100 Near Optimal 100-129 Borderline 130-159 High 160-189 Very High >=190 Specimen slightly lipemicBASIC METABOLIC [id number] 09:43:00* Test Item Value Reference Range Comments SODIUM (BEAKER) (test aymb=437) 138 meq/L 136-145 POTASSIUM (BEAKER) (test izaw=465) 4.6 meq/L 3.5-5.1 CHLORIDE (BEAKER) (test irqx=355) 106 meq/L 98-107 CO2 (BEAKER) (test muyx=854) 20 meq/L 22-29 BLOOD UREA NITROGEN (BEAKER) (test wcgo=702) 18 mg/dL 7-21 CREATININE (BEAKER) (test gowk=482) 1.10 mg/dL 0.57-1.25 GLUCOSE RANDOM (BEAKER) (test vbsd=456) 134 mg/dL 70-105 CALCIUM (BEAKER) (test lyqo=049) 10.0 mg/dL 8.4-10.2 EGFR (BEAKER) (test nmmb=0581) 65 mL/min/1.73 sq m ESTIMATED GFR IS NOT ACCURATE CREATININE CLEARANCE IN PREDICTING GLOMERULAR FILTRATION RATE. ESTIMATED GFR IS NOT APPLICABLE FOR DIALYSIS PATIENTS. HEPATIC FUNCTION [id number] 09:43:00* Test Item Value Reference Range Comments TOTAL PROTEIN (BEAKER) (test efqa=401) 7.8 gm/dL 6.0-8.3 ALBUMIN (BEAKER) (test yfdb=2535) 4.5 g/dL 3.5-5.0 BILIRUBIN TOTAL (BEAKER) (test auir=157) 0.7 mg/dL 0.2-1.2 BILIRUBIN DIRECT (BEAKER) (test ugoz=087) 0.2 mg/dL 0.1-0.5 ALKALINE PHOSPHATASE (BEAKER) (test qhzy=192) 74 U/L 40-150 AST (SGOT) (BEAKER) (test uoce=190) 21 U/L 5-34 ALT (SGPT) (BEAKER) (test ldiu=815) 20 U/L 6-55 Specimen slightly lipemic
--- OUTSIDE RECORDS SUMMARY | 2019-06-26 14:25 | XMS REPORT | Continuity of Care Document ---
Author Author [facility] Organization 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 Medications No known medications. Problems No problem information available. Procedures Procedure Date Performed Status ECG (electrocardiogram) March 12, 2019 active Computed tomography of head or brain without contrast March 12, 2019 completed Relevant Diagnostic Tests and/or Laboratory Data Laboratory Results Test Date/Time Result Interpretation Reference Range Result Comment Performing Site White Blood Count March 12, 2019 3:33pm 10.9 10*3/uL 4.8-10.[address] [address] Red Blood Count March 12, 2019 3:33pm 4.53 10*6/uL 4.50-5.[address] [address] Hemoglobin March 12, 2019 3:33pm 13.6 g/dL 13.6-17.[address] [address] Hematocrit March 12, 2019 3:33pm 42.7 % 40.2-51.[address] [address] Mean Corpuscular Volume March 12, 2019 3:33pm 94.3 fL 80.0-98.[address] [place] [address] Mean Corpuscular Hemoglobin March 12, 2019 3:33pm 30.0 pg 27.0-33.0 [facility], [address] [place] [address] Mean Corpuscular Hemoglobin Concent March 12, 2019 3:33pm 31.9 g/dL 32.5-35.0 [facility], [address] [place] [address] Red Cell Distribution Width March 12, 2019 3:33pm 15.3 % 11.5-14.5 [facility], [address] [facility] [place] [address] Platelet Count March 12, 2019 3:33pm 208 10*3/uL 160-400 [facility], [facility] [place] [address] Mean Platelet Volume March 12, 2019 3:33pm 10.7 fL 7.5-11.2 [facility], [facility] [place] [address] Neutrophils (%) (Auto) March 12, 2019 3:33pm 70 % 45-75 [facility], [facility] [place] [address] Immature Granulocyte % (Auto) March 12, 2019 3:33pm 1.0 % 0.0-1.5 [facility], [facility] [place] [address] Lymphocytes (%) (Auto) March 12, 2019 3:33pm 19 % 20-48 [facility], [facility] [place] [address] Monocytes (%) (Auto) March 12, 2019 3:33pm 7 % 1-9 [facility], [address] [place] [address] Eosinophils (%) (Auto) March 12, 2019 3:33pm 3 % 0-4 [facility], [address] [place] [address] Basophils (%) (Auto) March 12, 2019 3:33pm 1 % 0-2 [facility], [facility] [place] [address] Nucleated Red Blood Cells % March 12, 2019 3:33pm 0 % 0-1 [facility], [address] [place] [address] Neutrophils # (Auto) March 12, 2019 3:33pm 7.61 10*3/uL [facility], [address] [place] [address] Urine Source March 12, 2019 4:55pm Urine Clean Catch [facility], [address] [place] [address] Urine Color March 12, 2019 4:55pm Yellow Yel-Lucila [facility], [address] [place] [address] Urine Appearance March 12, 2019 4:55pm Clear Clear [facility], [address] [place] [address] Urine pH March 12, 2019 4:55pm 6.0 5.0-7.5 [facility], [address] [place] [address] Urine Specific [place] March 12, 2019 4:55pm 1.023 1.003-1.029 [facility], [address] [place] [address] Urine Protein March 12, 2019 4:55pm 2+ mg/dL Neg - Trace [facility], [address] [place] [address] Urine Glucose (UA) March 12, 2019 4:55pm Negative Negative [facility], [address] [place] [address] Urine Ketones March 12, 2019 4:55pm Negative Negative [facility], [address] [place] [address] Urine Occult Blood March 12, 2019 4:55pm Negative Negative [facility], [address] [place] [address] Urine Nitrite March 12, 2019 4:55pm Negative Negative [facility], [address] [place] [address] Urine Bilirubin March 12, 2019 4:55pm Negative Negative [facility], [address] [place] [address] Urine Urobilinogen March 12, 2019 4:55pm 3.0 mg/dL Norm-1.0 [facility], [address] [place] [address] Urine Leukocyte Esterase March 12, 2019 4:55pm Negative Negative [facility], [address] [place] [address] Urine RBC March 12, 2019 4:55pm 0-2 /[HPF] 0 to 5 [facility], [address] [place] [address] Urine WBC March 12, 2019 4:55pm 0 to 2 /[HPF] 0 to 5 [facility], [address] [place] [address] Urine Epithelial Cells March 12, 2019 4:55pm None seen /[LPF] None/Occ [facility], [address] [place] [address] Urine Bacteria March 12, 2019 4:55pm None seen /[HPF] None [facility], [address] [facility] [place] [address] Urine Hyaline Casts March 12, 2019 4:55pm 0-2 /[LPF] [facility], [address] [place] [address] Urine Yeast March 12, 2019 4:55pm None Seen /[HPF] [facility], [address] [place] [address] Sodium Level March 12, 2019 3:33pm 144 mmol/L 136-145 [facility], [address] [place] [address] Potassium Level March 12, 2019 3:33pm 4.4 mmol/L 3.5-5.1 [facility], [address] [place] [address] Chloride Level March 12, 2019 3:33pm 107 mmol/L 98-107 [facility], [address] [place] [address] Carbon Dioxide Level March 12, 2019 3:33pm 22 mmol/L 23-29 [facility], [address] [place] [address] Anion Gap March 12, 2019 3:33pm 15.0 mmol/L 3.0-11.0 [facility], [address] [place] [address] Blood Urea Nitrogen March 12, 2019 3:33pm 22.2 mg/dL 6.0-19.0 [facility], [address] [place] [address] [place] [address] Creatinine March 12, 2019 3:33pm 0.90 mg/dL 0.7-1.6 [facility], [address] [place] [address] [address] Estimated Creatinine Clearance March 12, 2019 3:33pm 74.2 [facility], [address] [place] [address] Estimat Glomerular Filtration Rate March 12, 2019 3:33pm 86.74 >60 Reporting units: mL/min/1.73m2 (Modified MDRD Formula)Normal Range: >60 Normal 30-60 Moderate renal disease <30 Severe renal disease [facility], [address] [place] [address] BUN/Creatinine Ratio March 12, 2019 3:33pm 25 [facility], [address] [place] [address] Glucose Level March 12, 2019 3:33pm 112 mg/dL 70-110 [facility], [address] [place] [address] [place] [address] Calcium Level March 12, 2019 3:33pm 10.8 mg/dL 8.4-10.2 [facility], [address] [place] [address] [place] [address] Total Bilirubin March 12, 2019 3:33pm 0.9 mg/dL 0-1.0 [facility], [address] [place] [address] [place] [address] Aspartate Amino Transf (AST/SGOT) March 12, 2019 3:33pm 22 U/L 0-37 [facility], [address] [place] [address] [address] Alanine Aminotransferase (ALT/SGPT) March 12, 2019 3:33pm 30 U/L 0-40 [facility], [address] [place] [address] [address] Total Protein March 12, 2019 3:33pm 7.4 g/dL 6.5-8.0 [facility], [address] [place] [address] [address] Albumin March 12, 2019 3:33pm 4.5 g/dL 3.4-4.8 [facility], [address] [place] [address] Globulin March 12, 2019 3:33pm 2.9 g/dL [place] [address] Albumin/Globulin Ratio March 12, 2019 3:33pm 1.6 {ratio} [place] [address] Alkaline Phosphatase March 12, 2019 3:33pm 59 U/L 40-129 [place] [address] Diagnostic Imaging Reports Report Dictated Date/Time Dictated By Status Head CT March 12, 2019 5:47pm DANIAL DAVILA JR., [place] [address] Radiology Results Signed Pt Name: SHELLIE FRIED JR 1940/79 Y/M MR: [id number] Pt Location: [facility] Exam Date and Time: 03/12/19 1511 Report # [id number] Requisition # [id number] Exam: [id number] CT/HEADorBRAIN WO CONT Exam CPT: 98122 [facility] MANDATED QUALITY DATA - CT RADIATION [address] scans at this facility utilize dose modulation, iterative reconstruction, and/or weight based dosing when appropriate to reduce radiation dose to as low as reasonably achievable. PROCEDURE: CT HEAD or BRAIN WO CONT performed on 03/12/2019 5:27 PM PRIOR: None Available This is a 79 years Male. History/reason for exam:dizziness w/ h/o atrial fibrillation: . TECHNIQUE: Axial images and coronal reconstruction were obtained. FINDINGS: Atrophy with compensatory ventricular dilatation above the fourth ventricle is noted. The deep white matter is normal. No hemorrhage, edema, or extra-axial blood collections are seen. The brainstem and cerebellum are normal. The sinuses and mastoids and calvarium are normal. IMPRESSION: No significant acute abnormality noted. Chronic changes consistent with the patient's age Dictated By: DANIAL DAVILA JR., MD Signed by: DANIAL DAVILA JR., MD D: 11/1746 T: Health Concerns Health Concerns may be documented in an alternate section. Advance Directives Advance Directive Response Recorded Date/Time Does the Patient have an Advance Directive? No March 12, 2019 4:27pm Chief Complaint and Reason for Visit Chief Complaint Blood Pressure - High Reason for Visit [id number] Encounters Encounter Location(s) Arrival/Admit Date Discharge/Depart Date Provider(s) Departed Emergency Room [facility] March 12, 2019 2:39pm March 12, 2019 6:53pm CAREY GUEVARA MD Recent Diagnosis Onset Date Hypertension Assessments Diagnosis Onset Date Resolution Status Hypertension Functional Status Observation Response Date Recorded Onset Within the Last 7 Days No Problem Identified March 12, 2019 4:27pm Goals Goals may be documented in an alternate section. Immunizations No Immunization Information Available Mental Status No Mental Status Information Available Medical Equipment No Medical Equipment Information available Insurance Providers Guarantor Shellie Fried Jr Address [address] [facility] [address] Contact Info. Home Phone: Payer Policy Id Coverage Id Subscriber's Name Subscriber Id Effective Date Expiration Date [facility] Choice [employer] Plus [id number] Shellie Fried Jr [id number] 2018 Medicare [id number] Shellie Fried Jr [id number] 2005 Plan of Treatment Future Tests Future scheduled test information is unavailable Pending Tests Pending diagnostic test information is unavailable Future Visits Future appointment information is unavailable Referrals to Other Providers Reason for Referral Referral Start Date Provider Provider Contact Information Provider Address CHRIS CAPUTO MD Work Phone: [address] [place] [phone] Future Procedures Future procedure information is unavailable Future Medications Future medication information is unavailable Patient Instructions High Blood Pressure (DC) Social History Smoking Status Status Date of Observation Ex-smoker (finding) March 12, 2019 5:08pm Observation Status Observation Response Date of Response Hx Tobacco Use Yes March 12, 2019 5:08pm Assigned Sex Male Vital Signs Vital Reading Result Reference Range Collection Date/Time Body Temperature 98.2 [degF] (97.6 - 99.5) March 12, 2019 2:56pm Heart Rate 87 /min (60 - 100) March 12, 2019 6:00pm Heart Rate 87 /min March 12, 2019 6:52pm Respiratory rate 17 /min (12 - 24) March 12, 2019 6:00pm Respiratory rate 17 /min March 12, 2019 6:52pm BP Systolic 151 mm[Hg] (100 - 140) March 12, 2019 6:00pm BP Systolic 151 mm[Hg] March 12, 2019 6:52pm BP Diastolic 86 mm[Hg] (60 - 90) March 12, 2019 6:00pm BP Diastolic 86 mm[Hg] March 12, 2019 6:52pm Weight 195 [lb_av] March 12, 2019 2:56pm BMI (Body Mass Index) 26.4 kg/m2 March 12, 2019 2:56pm
[2019-06-26] MEDS ORDERED: ACETAMINOPHEN/CODEINE ELIX 120-12 MG/5 ML UDC NG ONE (14:45)
[2019-06-26] MEDS ORDERED: ALBUTEROL/IPRATROPIUM 3 ML NEB NEB ONE (14:45)
[2019-06-26] MEDS ORDERED: ACETAMINOPHEN/CODEINE ELIX 120-12 MG/5 ML UDC ONE (14:52)
[2019-06-26] MEDS ORDERED: ALBUTEROL/IPRATROPIUM 3 ML NEB ONE (14:53)
--- NOTE | 2019-06-26 15:09 | Diagnostic Imaging Report ---
Chest, 1 view, 06/26/2019. History: Shortness of breath and cough. Comparison: None available. Findings: The cardiomediastinal silhouette and pulmonary vasculature are prominent. There is no focal consolidation or pleural effusion. Median sternotomy wires are intact. There are no acute osseous or soft tissue abnormalities. Impression: Mild cardiomegaly and pulmonary vascular congestion. Signed by: Graeme Braden on 06/26/2019 3:07 PM
[2019-06-26] MEDS ORDERED: FUROSEMIDE INJ 10 MG/ML 4 ML VIAL IV ONE (15:30)
[2019-06-26 16:22] VITALS: BP 123/70
== END 2019-06-26 15:57 | disposition left against medical advice (07) ==
LOC: FSED 14:21
DX: R06.09 Other forms of dyspnea (principal); R05 Cough; I50.21 Acute systolic (congestive) heart failure; I51.9 Heart disease, unspecified; Z95.4 Presence of other heart-valve replacement
CPT/HCPCS: 71045; 80053; 83880; 85025; 99284; J1940